=== PATIENT | male | born 1950 | race Caucasian/White ===

== ENCOUNTER 2016-08-07 15:43 | Emergency (ER) | payer OTHER ==
[~2016-08-07] VITALS: Ht 175.3 cm; Wt 61.8 kg
[~2016-08-07 15:43] MED LIST: AZITTAB PO; HYCUDL5 PO
[2016-08-07] MEDS ORDERED: CEFAZOLIN IV 2,000 MG in DEXTROSE 5% 50ML 50 ML IV STA (15:52)
[2016-08-07] MEDS ORDERED: HYDROmorphone INJ 1 MG/ML SYR IV STA (15:56)
[2016-08-07] MEDS ORDERED: HYDROmorphone INJ 1 MG/ML SYR ONE (15:57)
[2016-08-07] MEDS ORDERED: XYLOCAINE 1%/SOD BICARB 20 ML VIAL INFIL ONE (16:00)
[2016-08-07] MEDS ORDERED: DIPHTHERIA/TETANUS/PERTUSSIS 0.5 ML SYR/VIAL IM. ONE (16:00)
--- NOTE | 2016-08-07 16:02 | EMERGENCY ROOM VISIT NOTE ---
History Report prepared by Bessieibkhang: Kaleb Mooney Under the Supervision of: Dr. Art Garg M.D. First contact with patient: 15:48 Stated Complaint: CIRCULAR SAW/ LAC, TO THE BONE History of Present Illness The patient is a 66 year old male who presents to the Emergency Room via EMS with complaints of right leg laceration occurring a few minutes prior to arrival. He currently complains of right leg pain but otherwise denies any pain. He has worsening pain with movement. He was cutting wood with a circular saw when he hit something, the saw kicked back, and hit his leg. He denies any drug or alcohol use. His last tetanus shot was about 10 years ago. He denies any blood thinners or recent antibiotics. He does not have any medical problems. Source of History: patient Onset: a few minutes prior to arrival Position: leg (right) Quality: other (laceration) Modifying Factors (Worsening): movement Review of Systems See HPI for pertinent positives & negatives. A total of 6 systems reviewed and were otherwise negative. Past Medical & Surgical Medical Problems: (1) No Known Active Medical Problems Family History Diabetes mellitus Social History Marital Status: Occupation Status: unemployed Current/Historical Medications Scheduled Cephalexin Monohydrate (Keflex), 500 MG PO TID Multivitamins/Minerals (Mvi With Minerals), 1 TAB PO DAILY Allergies Coded Allergies: No Known Allergies (Verified , 08/07/16) Physical Exam Vital Signs Date Time Temp Pulse Resp B/P (MAP) Pulse Ox O2 Delivery O2 Flow Rate FiO2 08/07/16 17:29 75 18 96 08/07/16 17:21 127/65 08/07/16 16:25 131/81 08/07/16 16:13 79 14 97 08/07/16 16:04 36.8 97 20 131/81 98 Room Air 08/07/16 16:02 131/81 08/07/16 15:56 95 08/07/16 15:49 151/67 Physical Exam GENERAL: Patient is well appearing and in minimal distress. NECK: No stridor, no adenopathy, no meningismus, trachea is midline. LUNGS: No dyspnea. Clear to auscultation and equal bilaterally. No wheeze, no rhonchi. HEART: Regular rate and rhythm. No murmurs, rubs, gallops appreciated. EXTREMITIES: Normal motion all extremities, no cyanosis, no edema. 12 cm by 2 cm straight laceration over the right anterior thigh, mild muscle belly involvement, not grossly contaminated appearing, not actively bleeding. Distal pulses, sensation, movement intact. NEUROLOGIC: Alert and oriented, no acute motor or sensory deficits, no focal weakness, cranial nerves grossly intact. SKIN: No rash, no jaundice, no diaphoresis. Medical Decision & Procedures ER Provider Diagnostic Interpretation: X ray results are stated below per my interpretation and the radiologist's interpretation. RIGHT FEMUR 4 VIEWS CLINICAL HISTORY: Right thigh pain status post trauma COMPARISON: None. DISCUSSION: No fractures or dislocations are visualized. There is a soft tissue injury involving the mid anterior thigh. IMPRESSION: Soft tissue injury. No fractures identified. No radiopaque foreign bodies are evident Electronically signed by: Jonh Rand M.D. 08/07/2016 4:39 PM Dictated Date/Time: 08/07/2016 4:38 PM Medications Administered Medications (Trade) Dose Ordered Sig/Leanna Route Start Time Stop Time Status Last Admin Dose Admin Diphtheria/ Pertussis/Tetanus Vacc (Adacel Inj) 0.5 ml ONCE ONCE IM. 08/07/16 16:00 08/07/16 16:01 DC 08/07/16 16:20 0.5 ML Cefazolin Sodium 2000 mg/Dextrose 60 ml @ 100 mls/hr NOW STAT IV 08/07/16 15:52 08/07/16 16:27 DC 08/07/16 16:57 100 MLS/HR Hydromorphone HCl (Dilaudid Inj) 1 mg NOW STAT IV 08/07/16 15:56 08/07/16 15:57 DC 08/07/16 16:02 1 MG Oxycodone HCl (Roxicodone Immediate Rel 5MG Home Pack) 1 homepack UD ONCE PO 08/07/16 17:30 08/07/16 17:31 DC 08/07/16 17:30 1 HOMEPACK ED Course 1548: The patient was evaluated in room B10. A complete history and physical exam was performed. 1552: Cefazolin Sodium 2000 mg/Dextrose 60 ml @ 100 mls/hr IV 1556: Dilaudid Inj 1 mg IV 1600: Diphtheria/Pertussis/Tetanus Vacc 0.5 ml IM 1715: Cristian Elizalde PA-C, performed laceration repair. Refer to her procedure note for further details. 1720: Reevaluated the patient. Discussed results and discharge instructions: He verbalized understanding and agreement. The patient is ready for discharge. 1730: Oxycodone HCl 1 homepack PO Medical Decision Medication Reconciliation: I attest that I have personally reviewed the patient 's current medication list. Blood pressure screening: Patient was found to have an elevated blood pressure and was referred to their primary doctor for recheck and further treatment. 66 yr old male with right thigh laceration with no active bleeding nor is it significantly grossly contaminated. No other injuries and consistent with story of using circular saw. No n/v injury and patient without evidence of heavy hemorrhage. Pain controlled, given Adacel as last tetanus > 10yrs, and IV ancef given cause of injury and extent. Imaging without evidence of FB. Sutures/stapled by TERESA Elizalde with excellent closure. Wound care discussed with patient and family. Reviewed importance of monitoring for infection. Return for staple removal in 7-10 days. Impression Primary Impression: Laceration of right thigh Additional Impression: [id number] (DTP) vaccination Scribe Attestation The scribe's documentation has been prepared under my direction and personally reviewed by me in its entirety. I confirm that the note above accurately reflects all work, treatment, procedures, and medical decision making performed by me. Departure Information Dispostion Home / Self-Care Prescriptions Cephalexin Monohydrate (Keflex) 500 Mg Cap 500 MG PO TID for 7 Days, #21 CAP Prov: Art Garg M.D. 08/07/16 Referrals Pascual Wei M.D. (PCP) Forms HOME CARE DOCUMENTATION FORM, IMPORTANT VISIT INFORMATION Patient Instructions ED Laceration All, My [facility] Additional Instructions Return in 7-10 days for removal of brianda. You have received a narcotic pain medication. These medications may cause drowsiness and should not be used with other sedative medications. Do not drive , drink alcohol, perform dangerous activities, nor make important decisions after taking these medications. buttermaker continuous churn use or inappropriate use may lead to addiction. Problem Qualifiers Primary Impression: Laceration of right thigh Encounter type: initial encounter Qualified Codes: S71.111A - Laceration without foreign body, right thigh, initial encounter
[2016-08-07 16:04] VITALS: TEMP 36.8; Ht 175.3 cm; Wt 61.8 kg
[2016-08-07] MEDS ORDERED: MULT-513 PO (16:13)
--- NOTE | 2016-08-07 16:40 | DIAGNOSTIC IMAGING REPORT ---
RIGHT FEMUR 4 VIEWS CLINICAL HISTORY: Right thigh pain status post trauma COMPARISON: None. DISCUSSION: No fractures or dislocations are visualized. There is a soft tissue injury involving the mid anterior thigh. IMPRESSION: Soft tissue injury. No fractures identified. No radiopaque foreign bodies are evident Electronically signed by: Jonh Rand M.D. 08/07/2016 4:39 PM Dictated Date/Time: 08/07/2016 4:38 PM
--- NOTE | 2016-08-07 17:15 | EMERGENCY ROOM VISIT NOTE ---
ED Visit Note I was requested by Dr. Garg to repair a complex 12 cm right thigh laceration for this patient. Wound Repair: Complexity: Complex Verbal consent was obtained after the risks and benefits were explained, including but not limited to bleeding, scarring, infection, pain, and bone/joint /nerve damage. The skin was prepped with betadine and a sterile field set. The wound was anesthetized with 10 ml of 1% buffered lidocaine. With direct pressure the bleeding subsided. Copious irrigation was performed using the Morley irrigation and 500 mL of saline. The wound was explored for foreign bodies and none found. Debridement was not performed. The deep fascia was approximated with 5 interrupted 5-0 Vicryl sutures. The subcutaneous tissue was then approximated using a running 5-0 Vicryl suture. The wound edges were then approximated using 15 brianda Hemostasis and excellent approximation was achieved. Antibacterial ointment and a sterile dressing applied. Detailed wound care instructions and signs and symptoms of infection reviewed with the patient. No complications and the patient tolerated the procedure well.
[2016-08-07] MEDS ORDERED: CEPH500C PO (17:17)
[2016-08-07 17:21] VITALS: BP 127/65
[2016-08-07 17:29] VITALS: PULSE 75; O2SAT 96
[2016-08-07] MEDS ORDERED: OXYCODONE IR HOME PACK PO ONE (17:30)
== END 2016-08-07 17:35 | disposition home or self-care (01) ==
LOC: EDBD 15:43 → C.EDB 15:44
DX: S71.111A Laceration without foreign body, right thigh, initial encounter (principal); Z23 Encounter for immunization; W29.3XXA Contact with powered garden and outdoor hand tools and machinery, initial encounter; Z83.3 Family history of diabetes mellitus

== ENCOUNTER 2016-08-15 08:07 | Emergency (ER) | payer OTHER ==
[~2016-08-15 08:07] MED LIST changes: -AZITTAB PO; +CEPH500C PO; -HYCUDL5 PO; +MULT-513 PO
[2016-08-15 08:09] VITALS: TEMP 36.8
--- NOTE | 2016-08-15 08:36 | EMERGENCY ROOM VISIT NOTE ---
ED Visit Note First contact with patient: 08:12 CHIEF COMPLAINT: Suture removal This patient returns to the ED today for removal of sutures that were placed 8 days ago. There has been no swelling, redness, or purulent drainage from the wound. The patient feels like the laceration is healing well. He has been on antibiotics for prophylaxis against wound, but does note he has been applying antibiotic ointment for the past few days. REVIEW OF SYSTEMS: Head: No headache, injury or neck pain. Skin: No rash, new lesions, or masses. General: No fever or chills, fatigue, loss of appetite , or significant recent weight gain or loss. PMH: The patient is healthy; there is no significant medical or surgical history. SOCIAL HISTORY: Patient lives at home. PHYSICAL EXAM: Vital Signs: Reviewed Nurse's notes. There is a sutured wound on the right anterior thigh that appears to be healing well, with slight erythema and a small amount of punctate purulent drainage of which is superficial. Palpation does not reveal any fluid collections. There is no erythema, swelling, or tenderness. EMERGENCY DEPARTMENT COURSE: The sutures were removed without any difficulty and there was no separation of the wound edges. To help desk internship in strength and integrity I did apply for Steri-Strips in a perpendicular fashion after thoroughly cleansing the outside of the wound. He was educated upon worrisome symptoms which to return. He was discharged home in good condition. DIAGNOSIS: Healing laceration and suture removal Current/Historical Medications Scheduled Multivitamins/Minerals (Mvi With Minerals), 1 TAB PO DAILY Allergies Coded Allergies: No Known Allergies (Verified , 08/07/16) Vital Signs Date Time Temp Pulse Resp B/P (MAP) Pulse Ox O2 Delivery O2 Flow Rate FiO2 08/15/16 08:09 36.8 102 20 147/74 96 Room Air Departure Information Impression Primary Impression: Encounter for removal of brianda Dispostion Home / Self-Care Condition GOOD Referrals No Doctor, Assigned (PCP) Patient Instructions My [facility] Additional Instructions DISCHARGE INSTRUCTIONS AND TREATMENT: Wash any remaining crusts off of the wound today and resume your normal activities. You may leave the Steri-Strips in place for the next 1-2 days. At that point these will fall off. Please watch for signs of worsening infection to include redness, swelling, drainage or discharge from the wound site. If these are to develop please return immediately. If he developed fevers, chills, nausea or vomiting please also return. Thanks and have a good day.
[2016-08-15 08:45] VITALS: BP 123/67; PULSE 98; O2SAT 96
== END 2016-08-15 08:45 | disposition home or self-care (01) ==
LOC: C.EDB 08:09 → C.EDA 08:45
DX: S71.111D Laceration without foreign body, right thigh, subsequent encounter (principal); X58.XXXD Exposure to other specified factors, subsequent encounter

== ENCOUNTER 2016-09-13 09:35 | Emergency (ER) | payer OTHER ==
[~2016-09-13] VITALS: Ht 175.3 cm; Wt 60.6 kg
[~2016-09-13 09:35] MED LIST changes: -CEPH500C PO
[2016-09-13 09:37] VITALS: TEMP 36.6; Ht 175.3 cm; Wt 60.6 kg
--- NOTE | 2016-09-13 10:08 | EMERGENCY ROOM VISIT NOTE ---
History Report prepared by Eliceo: Hugo Blandon Under the Supervision of: Dr. Prince Brown M.D. First contact with patient: 09:49 Chief Complaint: WOUND RECHECK Stated Complaint: WOUND RECHECK Nursing Triage Summary: pt reports piece of string coming out of leg where he cut it. on left thigh cut with circular saw happened approx 1 month ago History of Present Illness The patient is a 66 year old male who presents to the Emergency Room for a right thigh wound re-check. He states that he had multiple brianda and sutures for a laceration of his right thigh which occurred about a month ago. He states that he accidently cut it with a circular saw. The patient states "there's a string coming out of it". He denies any redness or drainage to the area. He denies any recent fevers, chest pain, or SOB. The patient also complains of an "itching" sensation to his right thigh. Source of History: patient Onset: about a month ago Position: leg (right thigh) Quality: other (wound re-check) Associated Symptoms: No fevers, No chest pain, No SOB Note: The patient also complains of an "itching" sensation to his right thigh. Review of Systems See HPI for pertinent positives & negatives. A total of 6 systems reviewed and were otherwise negative. Past Medical & Surgical Medical Problems: (1) No Known Active Medical Problems Old medical records were reviewed. Nurse's notes were reviewed and I agree with. Family History Diabetes mellitus Social History Smoking Status: Current Every Day Smoker Marital Status: Occupation Status: unemployed Current/Historical Medications Scheduled Multivitamins/Minerals (Mvi With Minerals), 1 TAB PO DAILY Allergies Coded Allergies: No Known Allergies (Verified , 09/13/16) Physical Exam Vital Signs Date Time Temp Pulse Resp B/P (MAP) Pulse Ox O2 Delivery O2 Flow Rate FiO2 09/13/16 10:22 87 18 139/77 98 09/13/16 09:37 36.6 99 18 145/79 96 Room Air Physical Exam General: Well developed well nourished in no acute distress, breathing comfortably on room air. Normal speech HEENT: Normal cephalic atraumatic. Pupils are equal round and reactive to light. Extraocular movements are intact. Oropharynx is pink with moist mucous membranes. No swelling of the mouth lips or tongue. Neck: Supple with a midline trachea. No meningeal signs or stiffness, no JVD or bruits. No Stridor. Chest: Clear to auscultation bilaterally. No wheezes or rhonchi. No increased work of breathing. Heart: regular rate and rhythm. Abdomen: Soft nontender, nondistended without rebound guarding or rigidity. Extremities: Well healing laceration to the right high. No redness, warmth or drainage. Small suture exposed. Spine/Back. Non tender to palpation. No CVA tenderness Skin: Good turgor without rashes. Neurologic exam: Cranial nerves two through 12 are intact. Motor and sensation are intact and symmetrical throughout. Medical Decision & Procedures ED Course 0952: Past medical records reviewed. The patient was evaluated in room B6, and a complete history and physical examination were performed. 0955: I cut a small exposed suture in the patients right thigh. 1002: Upon reevaluation, the patient is resting comfortably. I discussed the results and treatment plan with him. He verbalized agreement of the treatment plan. The patient was discharged home. Medical Decision Differentials include, but are not limited to; infection, wound dehiscence, laceration, and foreign body. Medication reconciliation: I have personally reviewed the patient's medication list Hypertensive screening: The patient was found to have normal blood pressure and does not need follow-up This patient comes in as described above. On exam, he has a small suture loop hanging out of the wound. There is no wound dehiscence. The wound looks great otherwise and has no redness or warmth or pus or drainage. I reviewed the record and it shows that Vicryl resorbable sutures were used. It does seem to be bothering him and I did trim and cut the suture. They should resorb over time anyways. The patient is doing well and will be discharged home and was encouraged to return if any problems with the wound such as redness, pus, fever , drainage. Impression Primary Impression: Encounter for wound re-check Scribe Attestation The scribe's documentation has been prepared under my direction and personally reviewed by me in its entirety. I confirm that the note above accurately reflects all work, treatment, procedures, and medical decision making performed by me. Departure Information Dispostion Home / Self-Care Referrals No Doctor, Assigned (PCP) Forms HOME CARE DOCUMENTATION FORM, IMPORTANT VISIT INFORMATION, WORK / SCHOOL INSTRUCTIONS Patient Instructions My [facility] Additional Instructions Rest Return if: worsening of symptoms, any problems with wound, redness, pus, drainage
[2016-09-13 10:22] VITALS: BP 139/77; PULSE 87; O2SAT 98
== END 2016-09-13 10:23 | disposition home or self-care (01) ==
LOC: C.EDB 09:37
DX: Z09 Encounter for follow-up examination after completed treatment for conditions other than malignant neoplasm (principal); Z83.3 Family history of diabetes mellitus; F17.210 Nicotine dependence, cigarettes, uncomplicated

== ENCOUNTER 2023-07-23 09:48 | Inpatient (IN) ==
[2023-07-23] MEDS: SODIUM CHLORIDE 0.9% 1,000 ML IV SCH (10:26)
--- NOTE | 2023-07-23 10:28 | XRay Report ---
XR chest 1V portable CLINICAL HISTORY: Sepsis TECHNIQUE: Single frontal radiograph of the chest was obtained. Comparison: Comparison is made to chest radiograph 05/22/2010 FINDINGS: No lines and tubes are seen. The cardiomediastinal silhouette is normal. The lungs are clear. No evid ence of pleural effusion or pneumothorax. IMPRESSION: No acute abnormalities and in particular no radiographic evidence of pneumonia. ACT 112: Negative or not required by law. Electronically signed by: Chuy Gamboa M.D. 07/23/2023 10:27 AM
--- NOTE | 2023-07-23 10:36 | Emergency Department Note ---
Impression & Plan Altered mental status, Elevated troponin, Fever, Tachycardia ED Provider Note NAME: CELIA ARGUETA AGE: 73 SEX: M : 1950 ARRIVES VIA: Ambulance INFORMANT: Patient, ED PROVIDER(S): Otto Ashraf MD CHIEF COMPLAINT: Sleeping, tachycardic HPI: This is a 73-year-old male with history of possible dementia presenting for confusion, sleeping and tachycardia. Patient is with his sisters who he lives with. States that he was try to get dressed when he is found on the ground sitting up. Came back to find the patient laying down now. Was unable to get up on his own. They required assistance from a nephew. He otherwise was not acting himself so EMS was alerted. Upon arrival patient was noted tachycardic to the 140s. Reportedly as per EMS/nursing report he was hypoxic to 90% on room air. Otherwise he has not had any nausea, vomiting, diarrhea. No belly pain. No headache, falls or head injury. ROS: See above HPI for pertinent positives & negatives. A total of 10 systems reviewed and were otherwise negative. PHYSICAL EXAMINATION: General: resting comfortably in no acute distress Head: Normocephalic and atraumatic Eyes: Normal inspection, extraocular muscles intact Ear, nose, throat: Normal external exam, poor dentition Neck: Normal range of motion Respiratory: lungs clear to auscultation bilaterally Cardiovascular: Regular rate/rhythm, no murmur GI: soft, nontender, no guarding or rebound Extremities: nontender, moves all extremities Neuro: Awake, alert, moves all 70 spontaneously, symmetric face Skin: Warm, dry, and intact MEDICAL DECISION MAKING: This is a 73-year male presenting for confusion, sleeping + tachycardia. Patient is febrile, tachycardic. Will do septic workup at this time. Considered pneumonia, PE, ACS, bacteremia. Blood culture sent. No stiff neck at this time suggest meningitis clinically. -Blood reviewed showing no leukocytosis, slight hyponatremia. Troponin is elevated at 49.7. Procalcitonin is mildly elevated and 0.87 -Chest Xray independently interpreted by me showing no pneumothorax, focal opacity, or pleural effusions. -Head CT reveals no acute intracranial process -ECG independently interpreted by me with sinus tachycardia, rate of 116, normal axis, normal IL, normal QRS, normal QTc, no ST segment elevations consistent with STEMI criteria -Patient is febrile, tachycardic, confused, will admit for further workup. -Discussed with hospitalist for admission at this time. differential diagnosis: See above ER treatment provided: See below Diagnostics interpreted by me: ECG: See above Cardiac Monitoring: An order was placed for continuous cardiac monitoring. The monitor shows a rate of 104 sinus rhythm. Laboratory studies: As stated above and show below. Imaging studies: See below. 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 Beliefs That Will Affect Care: None Current Living Situation: Alone Other Information That Helps Us Care for You: No Feels Safe at Home: Yes Safety Concerns: Feels Safe At This Time Assistive Devices: None Allergies Allergies Allergy/AdvReac Type Severity Reaction Status Date / Time No Known Allergies Allergy Mild Verified 09/13/16 10:03 Home Meds Home Medications Medication Instructions Recorded Confirmed No Known Home Medications 07/23/23 07/23/23 Results & Data (ED) Vital Signs Vital Signs - 24 hr 07/23/23 09:48 07/23/23 10:17 07/23/23 10:30 Temperature 38.2 C H Temperature Source Oral Pulse Rate 120 H 120 H 112 H Pulse Rhythm Regular Respiratory Rate 21 21 Respiratory Effort / Characteristics Non-Labored Respiratory Depth Normal Respiratory Pattern Regular Blood Pressure 145/70 H Blood Pressure Mean 95 Pulse Oximetry 93 93 Oxygen Delivery Method Room Air Room Air Sepsis Recent Fever Within 48 Hours No Sepsis New/Unexplained Change in Mental Status Yes Sepsis Action Taken by Nursing Physician Notified Laboratory Data 07/24/23 07:46 07/24/23 07:46 Lab Results 07/23/23 07/23/23 07/23/23 Range/Units 10:07 10:27 10:28 WBC 5.94 (4.8-10.8) K/ul RBC 3.93 L (4.70-6.10) M/uL Hgb 12.9 L (14.0-18.0) g/dl Hct 37.5 L (42.0-52.0) % MCV 95.4 (80.0-100.0) fL MCH 32.8 (25.0-34.0) pg MCHC 34.4 (32.0-36.0) g/dL RDW Std Deviation 49.1 H (36.4-46.3) fL RDW Coeff of Tara 13.9 (11.5-14.5) % Plt Count 134 (130-400) K/uL MPV 11.4 (9.4-12.4) fL Immature Gran % (Auto) 0.5 % Neut % (Auto) 86.9 % Lymph % (Auto) 7.1 % [place] % (Auto) 2.0 % Eos % (Auto) 3.0 % Baso % (Auto) 0.5 % Neut # (Auto) 5.16 (1.40-6.50) K/uL Lymph # (Auto) 0.42 L (1.20-3.40) K/uL [place] # (Auto) 0.12 (0.11-0.59) K/uL Eos # (Auto) 0.18 (0.00-0.50) K/uL Baso # (Auto) 0.03 (0.00-0.20) K/uL Immature Gran # (Auto) 0.03 (0.01-0.20) K/uL Sodium 132 L (136-145) mmol/L Potassium 4.3 (3.5-5.1) mmol/L Chloride 100 (98-107) mmol/L Carbon Dioxide 24 (21-32) mmol/L Anion Gap 8 (3-11) BUN 31 H (6-23) mg/dl Creatinine 1.16 (0.6-1.4) mg/dl Est Cr Clr Drug Dosing Not Reportable Est GFR ( Amer) 72.0 ml/min Est GFR (Non-Af Amer) 62.1 ml/min BUN/Creatinine Ratio 26.7 H (10-20) Glucose 128 H (70-99(Fasting)) mg/dl Lactate 0.7 (0.4-2.0) mmol/L Calcium 8.8 (8.6-10.3) mg/dl Ionized Calcium Cancelled Magnesium 1.9 (1.7-2.4) mg/dl Total Bilirubin 0.7 (0.2-1.0) mg/dl Direct Bilirubin 0.2 (0-0.2) mg/dl AST 53 H (13-39) U/L ALT 20 (7-52) U/L Alkaline Phosphatase 73 (34-104) U/L Troponin I High Sens 49.7 H (0-20) pg/ml Total Protein 6.9 (6.0-8.3) gm/dl Albumin 3.9 (3.4-5.0) gm/dl Procalcitonin 0.87 H (0-0.5) ng/ml Urine Color Urine Appearance (Clear) Urine pH (4.5-7.5) Ur Specific [place] (1.000-1.030) Urine Protein (Negative) Urine Glucose (UA) (Negative) Urine Ketones (Negative) Urine Blood (Negative) Urine Nitrite (Negative) Urine Bilirubin (Negative) Urine Urobilinogen (Negative) Ur Leukocyte Esterase (Negative) Urine WBC (Auto) (0-5) /hpf Urine RBC (Auto) (0-2) /hpf U Hyaline Cast (Auto) (0-2) /lpf U Epithel Cells (Auto) (0-2) /hpf Urine Bacteria (Auto) (None Seen) Hyaline Casts (None Presnt) /lpf Granular Casts (None Prsent) /lpf Adenovirus (PCR) Not Detected (NotDetected) Anaplasma Smear See Comment Babesia Smear See Comment B. pertussis DNA (PCR) Not Detected (NotDetected) B.parapertussis DNA PCR Not Detected (NotDetected) Lyme Disease Screen Negative (Negative) C. pneumoniae DNA (PCR) Not Detected (NotDetected) Coronavirus OC43 (PCR) Not Detected (NotDetected) Coronavirus HKU1 (PCR) Not Detected (NotDetected) Coronavirus 229E (PCR) Not Detected (NotDetected) SARS-CoV-2 (PCR) Not Detected (NotDetected) Coronavirus NL63 (PCR) Not Detected (NotDetected) Human Metapneumovir PCR Not Detected (NotDetected) Influenza Type A (PCR) Not Detected (NotDetected) Influenza Type B (PCR) Not Detected (NotDetected) M. pneumoniae (PCR) Not Detected (NotDetected) Parainfluenza 1 (PCR) Not Detected (NotDetected) Parainfluenza 2 (PCR) Not Detected (NotDetected) Parainfluenza 3 (PCR) Not Detected (NotDetected) Parainfluenza 4 (PCR) Not Detected (NotDetected) RSV (PCR) Not Detected (NotDetected) Entero/Rhino (PCR) Not Detected (NotDetected) 07/23/23 07/23/23 07/23/23 Range/Units 10:59 12:14 12:59 WBC (4.8-10.8) K/ul RBC (4.70-6.10) M/uL Hgb (14.0-18.0) g/dl Hct (42.0-52.0) % MCV (80.0-100.0) fL MCH (25.0-34.0) pg MCHC (32.0-36.0) g/dL RDW Std Deviation (36.4-46.3) fL RDW Coeff of Tara (11.5-14.5) % Plt Count (130-400) K/uL MPV (9.4-12.4) fL Immature Gran % (Auto) % Neut % (Auto) % Lymph % (Auto) % [place] % (Auto) % Eos % (Auto) % Baso % (Auto) % Neut # (Auto) (1.40-6.50) K/uL Lymph # (Auto) (1.20-3.40) K/uL [place] # (Auto) (0.11-0.59) K/uL Eos # (Auto) (0.00-0.50) K/uL Baso # (Auto) (0.00-0.20) K/uL Immature Gran # (Auto) (0.01-0.20) K/uL Sodium (136-145) mmol/L Potassium (3.5-5.1) mmol/L Chloride (98-107) mmol/L Carbon Dioxide (21-32) mmol/L Anion Gap (3-11) BUN (6-23) mg/dl Creatinine (0.6-1.4) mg/dl Est Cr Clr Drug Dosing Est GFR ( Amer) ml/min Est GFR (Non-Af Amer) ml/min BUN/Creatinine Ratio (10-20) Glucose (70-99(Fasting)) mg/dl Lactate (0.4-2.0) mmol/L Calcium (8.6-10.3) mg/dl Ionized Calcium 1.11 L Magnesium (1.7-2.4) mg/dl Total Bilirubin (0.2-1.0) mg/dl Direct Bilirubin (0-0.2) mg/dl AST (13-39) U/L ALT (7-52) U/L Alkaline Phosphatase (34-104) U/L Troponin I High Sens 83.7 H* D (0-20) pg/ml Total Protein (6.0-8.3) gm/dl Albumin (3.4-5.0) gm/dl Procalcitonin (0-0.5) ng/ml Urine Color Dark Yellow Urine Appearance Cloudy A (Clear) Urine pH 5.5 (4.5-7.5) Ur Specific [place] 1.023 (1.000-1.030) Urine Protein 2+ H (Negative) Urine Glucose (UA) Negative (Negative) Urine Ketones 1+ H (Negative) Urine Blood 3+ H (Negative) Urine Nitrite Negative (Negative) Urine Bilirubin Negative (Negative) Urine Urobilinogen Negative (Negative) Ur Leukocyte Esterase Negative (Negative) Urine WBC (Auto) 0-5 (0-5) /hpf Urine RBC (Auto) 6-10 H (0-2) /hpf U Hyaline Cast (Auto) >20 H (0-2) /lpf U Epithel Cells (Auto) 3-5 H (0-2) /hpf Urine Bacteria (Auto) None Seen (None Seen) Hyaline Casts Present A (None Presnt) /lpf Granular Casts Present A (None Prsent) /lpf Adenovirus (PCR) (NotDetected) Anaplasma Smear Babesia Smear B. pertussis DNA (PCR) (NotDetected) B.parapertussis DNA PCR (NotDetected) Lyme Disease Screen (Negative) C. pneumoniae DNA (PCR) (NotDetected) Coronavirus OC43 (PCR) (NotDetected) Coronavirus HKU1 (PCR) (NotDetected) Coronavirus 229E (PCR) (NotDetected) SARS-CoV-2 (PCR) (NotDetected) Coronavirus NL63 (PCR) (NotDetected) Human Metapneumovir PCR (NotDetected) Influenza Type A (PCR) (NotDetected) Influenza Type B (PCR) (NotDetected) M. pneumoniae (PCR) (NotDetected) Parainfluenza 1 (PCR) (NotDetected) Parainfluenza 2 (PCR) (NotDetected) Parainfluenza 3 (PCR) (NotDetected) Parainfluenza 4 (PCR) (NotDetected) RSV (PCR) (NotDetected) Entero/Rhino (PCR) (NotDetected) Administered Medications Enoxaparin Sodium (Enoxaparin Inj 30 Mg/0.3 Ml Syr) 30 mg SQ QAM [facility] Stop: 08/23/23 08:59 Last Admin: 07/24/23 09:25 Dose: Not Given Documented By: GASTON Guaifenesin (Guaifenesin 600 Mg Tabcr) 600 mg PO Q12 [facility] Stop: 08/22/23 14:09 Last Admin: 07/24/23 07:35 Dose: 600 mg Documented By: Admin: 07/23/23 20:27 Dose: 600 mg Documented By: Admin: 07/23/23 14:49 Dose: Not Given Documented By: NATHALY Piperacillin Sod/Tazobactam (Sod 4.5 gm/ Dextrose) 100 mls @ 25 mls/hr IV Q8H [facility]; Protocol Stop: 07/25/23 18:59 Last Admin: 07/24/23 12:18 Dose: 25 mls/hr Documented By: Infusion: 07/24/23 07:34 Dose: Infused Documented By: Admin: 07/24/23 03:16 Dose: 25 mls/hr Documented By: Infusion: 07/23/23 23:44 Dose: Infused Documented By: Admin: 07/23/23 18:44 Dose: 25 mls/hr Documented By: NATHALY Vancomycin HCl 1,250 mg/ (Sodium Chloride) 275 mls @ 200 mls/hr IV Q24H [facility] Stop: 07/26/23 01:29 Last Infusion: 07/24/23 01:40 Dose: Infused Documented By: Admin: 07/24/23 00:08 Dose: 200 mls/hr Documented By: ELSY Metoprolol Tartrate (Metoprolol Tartrate 25 Mg Tab) 12.5 mg PO BID DELIA Stop: 08/23/23 10:44 Last Admin: 07/24/23 12:17 Dose: 12.5 mg Documented By: GASTON Discontinued Medications Enoxaparin Sodium (Enoxaparin Inj 40 Mg/0.4 Ml Syr) 40 mg SQ QAM [facility] Stop: 08/23/23 08:59 Last Admin: 07/24/23 07:37 Dose: Not Given Documented By: GASTON Sodium Chloride (Nss) 1,000 mls @ 999 mls/hr IV .Q1H1M [facility]IA Stop: 07/23/23 11:30 Last Infusion: 07/23/23 11:36 Dose: Infused Documented By: Admin: 07/23/23 10:26 Dose: 999 mls/hr Documented By: CATRACHITA Vancomycin HCl 1,250 mg/ (Sodium Chloride) 525 mls @ 200 mls/hr IV NOW ONE Stop: 07/23/23 15:34 Last Infusion: 07/23/23 17:57 Dose: Infused Documented By: Admin: 07/23/23 14:30 Dose: 200 mls/hr Documented By: NATHALY Piperacillin Sod/Tazobactam (Sod 4.5 gm/ Dextrose) 100 mls @ 200 mls/hr IV NOW ONE; Protocol Stop: 07/23/23 13:44 Last Infusion: 07/23/23 14:30 Dose: Infused Documented By: Admin: 07/23/23 13:45 Dose: 200 mls/hr Documented By: NAVJOT Ioversol (Optiray 320 125ml) 119 ml IV ONCE ONE Stop: 07/23/23 13:10 Last Admin: 07/23/23 13:10 Dose: 119 ml Documented By: SOBEIDAK Imaging Data Radiologist's Impression: Chest X-Ray 07/23/23 10:17 XR chest 1V portable CLINICAL HISTORY: Sepsis TECHNIQUE: Single frontal radiograph of the chest was obtained. Comparison: Comparison is made to chest radiograph 05/22/2010 FINDINGS: No lines and tubes are seen. The cardiomediastinal silhouette is normal. The lungs are clear. No evidence of pleural effusion or pneumothorax. IMPRESSION: No acute abnormalities and in particular no radiographic evidence of pneumonia. ACT 112: Negative or not required by law. Electronically signed by: Chuy Gamboa M.D. 07/23/2023 10:27 AM Discharge Plan Visit Data Chief Complaint: Illness Stated Complaint: ALOC, ILLNESS ED Provider: Otto Ashraf Discharge Problem: Altered mental status, Elevated troponin, Fever, Tachycardia Patient Disposition: Admitted As Inpatient Discharge Instructions Interventions: ED Discharge Assessment Last Done: 07/23/23 13:51
[2023-07-23 10:41] LABS: Alanine Aminotransferase 20 U/L (7-52); Albumin Level 3.9 gm/dl (3.4-5.0); Alkaline Phosphatase 73 U/L (34-104); Anion Gap 8 (3-11); Aspartate Aminotransferase 53 U/L (13-39); BUN Creatinine Ratio 26.7 (10-20); Bilirubin,Total 0.7 mg/dl (0.2-1.0); Blood Urea Nitrogen 31 mg/dl (6-23); Calcium 8.8 mg/dl (8.6-10.3); Carbon Dioxide 24 mmol/L (21-32); Chloride 100 mmol/L (98-107); Est GFR (Non-African American) 62.1 ml/min; Glucose 128 mg/dl (70-99(Fasting)); Magnesium 1.9 mg/dl (1.7-2.4); Potassium 4.3 mmol/L (3.5-5.1); Sodium 132 mmol/L (136-145); Total Protein 6.9 gm/dl (6.0-8.3)
[2023-07-23 10:42] LABS: Bilirubin Direct 0.2 mg/dl (0-0.2); Troponin I High Sensitivity 49.7 pg/ml (0-20)
[2023-07-23 10:49] LABS: Basophils # (auto) 0.03 K/uL (0.00-0.20); Basophils % (auto) 0.5 %; Eosinophils # (auto) 0.18 K/uL (0.00-0.50); Hematocrit (blood only) 37.5 % (42.0-52.0); Hemoglobin 12.9 g/dl (14.0-18.0); Immature Granulocytes # (auto) 0.03 K/uL (0.01-0.20); Immature Granulocytes % (auto) 0.5 %; Lymphocytes # (auto) 0.42 K/uL (1.20-3.40); Lymphocytes % (auto) 7.1 %; Mean Corpuscular Hemoglobin 32.8 pg (25.0-34.0); Mean Corpuscular Hgb Conc 34.4 g/dL (32.0-36.0); Mean Corpuscular Volume 95.4 fL (80.0-100.0); Mean Platelet Volume 11.4 fL (9.4-12.4); Monocytes # (auto) 0.12 K/uL (0.11-0.59); Neutrophils # (auto) 5.16 K/uL (1.40-6.50); Neutrophils % (auto) 86.9 %; Platelet Count 134 K/uL (130-400); RDW Coefficient of Variation 13.9 % (11.5-14.5); RDW Standard Deviation 49.1 fL (36.4-46.3); Red Blood Count 3.93 M/uL (4.70-6.10); White Blood Count 5.94 K/ul (4.8-10.8)
--- NOTE | 2023-07-23 10:54 | CT Scan Report ---
CT head/brain wo con CLINICAL HISTORY: Confusion, lethargy, Technique: Contiguous axial CT images of the head were acquired from the base of the skull to the aayush mary without intravenous contrast administration. Images were viewed in brain, subdural and [facility]. Automated dose lowering techniques and/or adjustment according to patient size were utilized for this exam. Comparison: None available at the time of this dictation. Findings: The ventricles, basal cisterns, and cerebral sulci are normal. There is no acute intracranial hemorrh age or evidence of acute territorial infarction. Neither mass effect, shift of the midline structures , nor abnormal extra-axial fluid collections are shown. Imaged portions of the paranasal sinuses and mastoid air cells are clear. The orbits appear normal. There are no acute fractures of the calvaria or scalp swelling. Impression: No acute intracranial hemorrhage, no evidence of acute territorial infarction or other acute intracra nial disease process. ACT 112: Negative or not required by law. Electronically signed by: Chuy Gamboa M.D. 07/23/2023 10:53 AM
[2023-07-23 11:31] LABS: Adenovirus PCR Not Detected (NotDetected); Bordetella parapertussis PCR Not Detected (NotDetected); Bordetella pertussis PCR Not Detected (NotDetected); Chlamydia pneumoniae PCR Not Detected (NotDetected); Coronavirus 229E PCR Not Detected (NotDetected); Coronavirus CoV-2 (COVID19)PCR Not Detected (NotDetected); Coronavirus HKU1 PCR Not Detected (NotDetected); Coronavirus NL63 PCR Not Detected (NotDetected); Coronavirus OC43PCR Not Detected (NotDetected); Human Metapneumovirus PCR Not Detected (NotDetected); Influenza A PCR Not Detected (NotDetected); Influenza B PCR Not Detected (NotDetected); Mycoplasma pneumoniae PCR Not Detected (NotDetected); Parainfluenza Virus 1 PCR Not Detected (NotDetected); Parainfluenza Virus 2 PCR Not Detected (NotDetected); Parainfluenza Virus 3 PCR Not Detected (NotDetected); Parainfluenza Virus 4 PCR Not Detected (NotDetected); Respiratory Syncytial VirusPCR Not Detected (NotDetected); Rhinovirus/Enterovirus PCR Not Detected (NotDetected)
--- NOTE | 2023-07-23 12:32 | History & Physical Report ---
Date of Service July 23, 2023 Assessment & Plan (1) Altered mental status: Plan: This is a 73 y/o male who does not routinely follow with medical providers who presented to the ED today via EMS after his sister found him lying on the floor this morning, unable to get up on his own. There is a question of undiagnosed dementia as patient refuses to seek medical care most of the time. His family reports that he is more confused and tired than usual today. On initial presentation to the ED, he was febrile and tachycardic. Resp panel was negative, urine testing pending. - Admit to PCU - Start broad spectrum antibiotics as clinical picture c/w infection of unclear source (Zosyn, vancomycin) - discussed with nurse to get a urine now, cath if required - Check CT chest to r/o PE in view of hypoxia on initial EMS evaluation - Check CT abd/pel due to unclear source of infection - Blood cultures, urine culture pending (2) Fever: Plan: See plan for #1 Labs for tickborne disease Stool PCR (3) Elevated troponin: Plan: Initial troponin in the ED was 49.7 - EKG reviewed and without ischemic changes at present - Trend troponin - Repeat EKG in the AM Plan Pt seen and reviewed with attending physician, Dr. Alcocer. Plan of care discussed and as outlined above. Code status: DNR/DNI per sisters DVT Prophylaxis: Lovenox Dispo: PCU Yady Sandoval PA-C History of Present Illness Chief Complaint: altered mental status Primary Care Provider: William Eisenberg This is a 73 y/o male who does not routinely follow with medical providers who presented to the ED today via EMS after his sister found him lying on the floor this morning, unable to get up on his own. History from the patient is limited due to his current confusion so most of history was obtained from his sisters who are at the bedside. His sister reports that pt has been sleeping more than usual the last several days. Yesterday, he slept most of the day and refused to eat anything. This morning, when she went to check on pt, he was having trouble getting dressed, which he does not usually have an issue with. He declined her help so she left and came back in a few minutes to check on him. When she came back, pt was lying on the floor and couldn't get up on this own. When she and her nephew attempted to get patient up, he was very stiff and seemed off- balance. Because of this change in mental status and generalized weakness, they called EMS. When EMS arrived, pt was tachycardic, febrile, and hypoxic so they started him on 6L O2. In the ED, pulseox has been in the low 90s on room air. Pt denies any pain at present. He knows that he is in the hospital but is unsure why. He has had a cough but no diarrhea, vomiting, shortness of breath, urinary incontinence. Pt does smoke "heavily" and chews tobacco. His sisters think that he has underlying dementia although he has never been formally diagnosed as he refuses to see a healthcare provider. They note that he has been more forgetful, such as forgetting to turn off the stove or forgetting why he went into a room, and gets intermittent episodes of confusion. His current mental status is worse than his usual per their report. Allergies Allergy/AdvReac Type Severity Reaction Status Date / Time No Known Allergies Allergy Mild Verified 09/13/16 10:03 Home Medications Medication Instructions Recorded Confirmed Type No Known Home Medications 07/23/23 07/23/23 History Past Med/Surg History Problem List (Updated 07/23/23 @ 19:49 by Samia Sandoval PA-C) Elevated troponin Altered mental status Fever Medical History (Updated 07/23/23 @ 19:49 by Samia Sandoval PA-C) Adhesive capsulitis of left shoulder Surgical History (Updated 07/23/23 @ 13:27 by Samia Sandoval PA-C) History of tonsillectomy History of thumb surgery Family History (Updated 07/23/23 @ 13:27 by Samia Sandoval PA-C) Other Heart disease Social History Smoking Status: Current every day smoker Hx Alcohol Use: No Hx Substance Use: No Preferred Language: Nepali Communication Ability: Effective [employer] Worker Required: No Beliefs That Will Affect Care: None Current Living Situation: Alone Other Information That Helps Us Care for You: No Feels Safe at Home: Yes Safety Concerns: Feels Safe At This Time Assistive Devices: None Review of Systems Review of Systems: Limited due to confusion - see HPI Physical Exam Physical Exam: For details of the physical exam, please see the physician note. Results & Data Results & Data Vital Signs (Past 12 Hours) Vital Signs Temp Pulse Pulse Resp BP BP Pulse Ox 07/23/23 11:00 104 H 18 136/62 95 07/23/23 10:30 112 H 07/23/23 10:17 120 H 21 93 07/23/23 09:48 38.2 C H 120 H 21 145/70 H 93 O2 Del Method 07/23/23 11:00 Room Air 07/23/23 10:30 07/23/23 10:17 Room Air 07/23/23 09:48 Room Air Laboratory Results Laboratory Results - last 24 hr 07/23/23 07/23/23 07/23/23 10:07 10:27 10:28 WBC 5.94 RBC 3.93 L Hgb 12.9 L Hct 37.5 L MCV 95.4 MCH 32.8 MCHC 34.4 RDW Std Deviation 49.1 H RDW Coeff of Tara 13.9 Plt Count 134 MPV 11.4 Immature Gran % (Auto) 0.5 Neut % (Auto) 86.9 Lymph % (Auto) 7.1 [place] % (Auto) 2.0 Eos % (Auto) 3.0 Baso % (Auto) 0.5 Neut # (Auto) 5.16 Lymph # (Auto) 0.42 L [place] # (Auto) 0.12 Eos # (Auto) 0.18 Baso # (Auto) 0.03 Immature Gran # (Auto) 0.03 Sodium 132 L Potassium 4.3 Chloride 100 Carbon Dioxide 24 Anion Gap 8 BUN 31 H Creatinine 1.16 Est Cr Clr Drug Dosing Not Reportable Est GFR ( Amer) 72.0 Est GFR (Non-Af Amer) 62.1 BUN/Creatinine Ratio 26.7 H Glucose 128 H Lactate 0.7 Calcium 8.8 Ionized Calcium Cancelled Magnesium 1.9 Total Bilirubin 0.7 Direct Bilirubin 0.2 AST 53 H ALT 20 Alkaline Phosphatase 73 Troponin I High Sens 49.7 H Total Protein 6.9 Albumin 3.9 Procalcitonin 0.87 H Adenovirus (PCR) Not Detected B. pertussis DNA (PCR) Not Detected B.parapertussis DNA PCR Not Detected C. pneumoniae DNA (PCR) Not Detected Coronavirus OC43 (PCR) Not Detected Coronavirus HKU1 (PCR) Not Detected Coronavirus 229E (PCR) Not Detected SARS-CoV-2 (PCR) Not Detected Coronavirus NL63 (PCR) Not Detected Human Metapneumovir PCR Not Detected Influenza Type A (PCR) Not Detected Influenza Type B (PCR) Not Detected M. pneumoniae (PCR) Not Detected Parainfluenza 1 (PCR) Not Detected Parainfluenza 2 (PCR) Not Detected Parainfluenza 3 (PCR) Not Detected Parainfluenza 4 (PCR) Not Detected RSV (PCR) Not Detected Entero/Rhino (PCR) Not Detected 07/23/23 10:59 WBC RBC Hgb Hct MCV MCH MCHC RDW Std Deviation RDW Coeff of Tara Plt Count MPV Immature Gran % (Auto) Neut % (Auto) Lymph % (Auto) [place] % (Auto) Eos % (Auto) Baso % (Auto) Neut # (Auto) Lymph # (Auto) [place] # (Auto) Eos # (Auto) Baso # (Auto) Immature Gran # (Auto) Sodium Potassium Chloride Carbon Dioxide Anion Gap BUN Creatinine Est Cr Clr Drug Dosing Est GFR ( Amer) Est GFR (Non-Af Amer) BUN/Creatinine Ratio Glucose Lactate Calcium Ionized Calcium 1.11 L Magnesium Total Bilirubin Direct Bilirubin AST ALT Alkaline Phosphatase Troponin I High Sens Total Protein Albumin Procalcitonin Adenovirus (PCR) B. pertussis DNA (PCR) B.parapertussis DNA PCR C. pneumoniae DNA (PCR) Coronavirus OC43 (PCR) Coronavirus HKU1 (PCR) Coronavirus 229E (PCR) SARS-CoV-2 (PCR) Coronavirus NL63 (PCR) Human Metapneumovir PCR Influenza Type A (PCR) Influenza Type B (PCR) M. pneumoniae (PCR) Parainfluenza 1 (PCR) Parainfluenza 2 (PCR) Parainfluenza 3 (PCR) Parainfluenza 4 (PCR) RSV (PCR) Entero/Rhino (PCR) Diagnostic Findings Chest X-Ray 07/23/23 10:17 XR chest 1V portable CLINICAL HISTORY: Sepsis TECHNIQUE: Single frontal radiograph of the chest was obtained. Comparison: Comparison is made to chest radiograph 05/22/2010 FINDINGS: No lines and tubes are seen. The cardiomediastinal silhouette is normal. The lungs are clear. No evidence of pleural effusion or pneumothorax. IMPRESSION: No acute abnormalities and in particular no radiographic evidence of pneumonia. ACT 112: Negative or not required by law. Electronically signed by: Chuy Gamboa M.D. 07/23/2023 10:[address] 07/23/23 10:17 CT head/brain wo con CLINICAL HISTORY: Confusion, lethargy, Technique: Contiguous axial CT images of the head were acquired from the base of the skull to the vertex without intravenous contrast administration. Images were viewed in brain, subdural and bone windows. Automated dose lowering techniques and/or adjustment according to patient size were utilized for this exam. Comparison: None available at the time of this dictation. Findings: The ventricles, basal cisterns, and cerebral sulci are normal. There is no acute intracranial hemorrhage or evidence of acute territorial infarction. Neither mass effect, shift of the midline structures, nor abnormal extra-axial fluid collections are shown. Imaged portions of the paranasal sinuses and mastoid air cells are clear. The orbits appear normal. There are no acute fractures of the calvaria or scalp swelling. Impression: No acute intracranial hemorrhage, no evidence of acute territorial infarction or other acute intracranial disease process. ACT 112: Negative or not required by law. Electronically signed by: Chuy Gamboa M.D. 07/23/2023 10:53 AM Medications Administered Discontinued Medications Sodium Chloride (Nss) 1,000 mls @ 999 mls/hr IV .Q1H1M DELIA Stop: 07/23/23 11:30 Last Infusion: 07/23/23 11:36 Dose: Infused Documented By: Admin: 07/23/23 10:26 Dose: 999 mls/hr Documented By: CATRACHITA Supervising Physician Co-Signing Physician Notes Pt seen and examined by tn, care coordinated w/ MELANI Sandoval, pls see her note above for further detail. Pt is a 73 y/o M who does not routinely follow with medical providers who presents via EMS after his sister found him lying on the floor this morning, unable to get up on his own. Pt's sister reports that pt has been sleeping more than usual the last several days. In the ED found febrile with temp. 38.2C, tachycardic into 120s, elev. troponin. CXR negative. procal mildly elevated, WBC wnl. UA pending. CT head negative. Pt is currently laying in bed in [facility]. He knows that he is in the hospital and recognizes his sisters at the bedside. he is able to answer simple questions. CV: tachycardic. Lung sounds diminished, no wheezing. Abdomen soft, nontender, +bowel sounds. No LE edema. Skin is warm and dry. Pt is moving extremities. Concern for sepsis with AMS, fever, tachycardia, elev. procal even though WBC wnl - may not be sign. elevated in elderly, and infectious work-up pending. blood cultx pending. UA not obtained yet. Will also rule PE/ DVT. Will start broad spectrum abx. MD Carlyn (1) Altered mental status Altered mental status type: unspecified Qualified Code(s): R41.82 - Altered mental status, unspecified (2) Fever Fever type: unspecified Qualified Code(s): R50.9 - Fever, unspecified
[2023-07-23] MEDS ORDERED: VANCOMYCIN CONSULT ACTIVE PRN (12:57)
[2023-07-23] MEDS ORDERED: Patient's HEIGHT &/or WEIGHT Needed STA (13:05)
[2023-07-23] MEDS: OPTIRAY 320 125ml IV ONE (13:10)
[2023-07-23 13:24] LABS: Appearance Urine Cloudy (Clear); Bacteria Urine Automated None Seen (None Seen); Bilirubin Urine Negative (Negative); Blood Urine 3+ (Negative); Cast Urine Automated >20 /lpf (0-2); Color Urine Dark Yellow; Glucose Urine UA Negative (Negative); Granular Casts Urine Present /lpf (None Prsent); Hyaline Casts Urine Present /lpf (None Presnt); Ketones Urine 1+ (Negative); Leukocyte Esterase Urine Negative (Negative); Nitrite Urine Negative (Negative); Protein Urine 2+ (Negative); Specific Gravity Urine 1.023 (1.000-1.030); Urobilinogen Urine Negative (Negative); WBC Urine Automated 0-5 /hpf (0-5); pH Urine 5.5 (4.5-7.5)
[2023-07-23] MEDS: PIPER/TAZO 4.5g in D5W MINI-B 100 ML IV ONE (13:45)
--- NOTE | 2023-07-23 13:49 | CT Scan Report ---
CT angio chest PE protocol CLINICAL HISTORY: PE TECHNIQUE: Multidetector row helical CT of the chest was performed with angiographic protocol. Blackmon l and sagittal reformations were obtained. Coronal and sagittal MIPS were obtained from the axial fela a set and were submitted for review. Automated dose lowering techniques and/or adjustment according to patient size were utilized for this exam. CT DOSE: 814.34 mGy.cm Comparison: Comparison is made to CT chest 05/22/2010 FINDINGS: Lungs and pleura: Bronchiectasis and tree-in-bud nodularity is seen most prominently in the right mid dle lobe and anterior left lung. Tree-in-bud nodularity is in the right upper lobe as well. Heart and pericardium: Heart size is normal. No pericardial effusion. Vessels: No evidence of pulmonary embolism. Mild atherosclerotic disease is seen. Mediastinum and eloisa: No lymphadenopathy. Thickening of the esophageal wall is noted. Chest wall and lower neck: Unremarkable. Abdomen: For findings below the diaphragm, please refer to CT of the abdomen dated the same. Bones: Degenerative changes in the thoracic spine. IMPRESSION: No evidence of pulmonary embolus. Bronchiectasis and infectious/inflammatory process noted, likely ch ronic such as from atypical mycobacterial infection. Findings are increased from 2011 and mild superi mposed pneumonia cannot be excluded. ACT 112: Negative or not required by law. Electronically signed by: Chuy Gamboa M.D. 07/23/2023 1:47 PM
--- NOTE | 2023-07-23 13:56 | CT Scan Report ---
CT abd pelvis IV con only CLINICAL HISTORY: fever, tachycardia, AMS TECHNIQUE: Helical axial images of the abdomen and pelvis were obtained and displayed. Automated dose lowering techniques and/or adjustment according to patient size were utilized for this exam. This e xam was performed with intravenous contrast. COMPARISON: None available at the time of this dictation. FINDINGS: Lower chest: For findings above the diaphragm, please see CT chest performed same day. Liver: Unremarkable. No focal lesions are seen. Gallbladder and biliary tree: No calcified gallstones. Normal caliber wall. No intra- or extrahepatic biliary ductal dilation. Pancreas: Unremarkable, no focal lesions. Spleen: Unremarkable. Adrenals: Unremarkable. Kidneys and ureters: Nonobstructive nephrolithiasis is seen. Bladder: Diffuse homogeneous wall thickening is seen. Reproductive organs: Prostatic calcifications are seen which may represent prior hemorrhage or granul omatous disease. Bowel: The appendix is normal. Lymph nodes Retroperitoneal: Unremarkable. Pelvic: Unremarkable. Mesenteric: Unremarkable. Peritoneum: Normal. Vessels: Atherosclerotic calcifications are seen. Abdominal wall: Unremarkable. Bones: Degenerative changes in the visualized spine. IMPRESSION: No acute abnormalities. ACT 112: Negative or not required by law. Electronically signed by: Chuy Gamboa M.D. 07/23/2023 1:54 PM
[2023-07-23] MEDS ORDERED: ACETAMINOPHEN 325 MG TAB PO PRN (14:18)
[2023-07-23] MEDS: VANCOMYCIN HCL 1,250 MG in SODIUM CHLORIDE 0.9% 500 ML IV ONE (14:30)
[2023-07-23] MEDS: guaiFENesin 600 MG TABCR PO SCH (14:49)
--- NOTE | 2023-07-23 16:58 | Ultrasound Report ---
US venous doppler LE BI CLINICAL HISTORY: r/o DVT TECHNIQUE: Bilateral lower extremity real-time compression venous ultrasound with Color Doppler imagi ng. Utilizing real-time ultrasonic imaging multiple real time high-resolution ultrasonic images with compression and noncompression maneuvers of the deep venous system in addition to color doppler imagi ng were performed from the common femoral vein through the proximal calf veins. COMPARISON: None available at the time of this dictation. FINDINGS/IMPRESSION: Currently there is normal compressibility of the deep venous system from the common femoral vein thro ugh the proximal calf veins. No superficial venous thrombosis is identified. ACT 112: Negative or not required by law. Electronically signed by: Chuy Gamboa M.D. 07/23/2023 4:56 PM
[2023-07-23] MEDS: PIPERACILLIN/TAZOBACTAM 4.5 GM in DEXTROSE 5% MINI-B 100 ML IV SCH (18:44)
[2023-07-24] MEDS: VANCOMYCIN HCL 1,250 MG in SODIUM CHLORIDE 0.9% 250 ML IV SCH (00:08)
--- NOTE | 2023-07-24 06:59 | Electrocardiogram Report ---
Test Reason : Blood Pressure : / mmHG Vent. Rate : 103 BPM Atrial Rate : 103 BPM P-R Int : 120 ms QRS Dur : 082 ms QT Int : 366 ms P-R-T Axes : 075 -48 054 degrees QTc Int : 479 ms Sinus tachycardia with PACs Left anterior fascicular block Abnormal ECG When compared with ECG of 23-JUL-2023 09:55, (unconfirmed) Left anterior fascicular block is now Present PACs are now present Confirmed by Paulie Escobar ([id number]) on 07/24/2023 6:59:22 AM Referred By: Prasanth Alcocer Confirmed By:Suhail Escobar
--- NOTE | 2023-07-24 07:03 | Electrocardiogram Report ---
Test Reason : Blood Pressure : / mmHG Vent. Rate : 116 BPM Atrial Rate : 116 BPM P-R Int : 116 ms QRS Dur : 080 ms QT Int : 332 ms P-R-T Axes : 074 -08 063 degrees QTc Int : 461 ms Sinus tachycardia Otherwise normal ECG When compared with ECG of 22-MAY-2010 18:28, No significant change was found Confirmed by Paulie Escobar ([id number]) on 07/24/2023 7:02:54 AM Referred By: Prasanth Alcocer Confirmed By:Suhail Escobar
[2023-07-24] MEDS: ENOXAPARIN INJ 40 MG/0.4 ML SYR SQ SCH (07:37)
--- NOTE | 2023-07-24 07:41 | Hospitalist Progress Note ---
Date of Service July 24, 2023 Assessment & Plan (1) Altered mental status: Plan: This is a 73 y/o male who does not routinely follow with medical providers who presents with fever, tachycardia, AMS - after his sister found him lying on the floor unable to get up on his own. There is a question of undiagnosed dementia as patient refuses to seek medical care most of the time. His family reports that he is more confused and tired than usual. On initial presentation to the ED, he was febrile and tachycardic. Resp panel was negative, urine testing pending. Possible sepsis, poss. pna - Admitted to PCU - Resp panel was negative - CXR negative - WBC wnl - Procal 0.87 - CT PE - No evidence of pulmonary embolus. Bronchiectasis and infectious/inflammatory process noted, likely chronic such as from atypical mycobacterial infection. Findings are increased from 2011 and mild superimposed pneumonia cannot be excluded. - Doppler LE negative for DVT - CT abd/pelvis - No acute abnormalities. - Ucultx pending - Blood cultures - pending - Labs for tickborne disease - pending - Stool PCR pending - Started broad spectrum antibiotics as clinical picture c/w infection of unclear source (Zosyn, vancomycin) - guafenesin, flutter valve, IS - cont. to closely monitor and follow cultx (2) Fever: Plan: See plan for #1 Labs for tickborne disease Stool PCR Scrotal edema - will obtain US - nontender (3) Elevated troponin: Plan: Initial troponin in the ED was 49.7 - EKG reviewed and without ischemic changes at present - repeat Troponin trending up - will obtain echo and will discuss w/ cardiology Plan Code status: DNR/DNI per sisters DVT Prophylaxis: Lovenox Dispo: PCU Admission and Anticipated Discharge Date Admission Date: July 23, 2023 Subjective Pt seen in follow up of fever, tachycardia, AMS, elev. trop. Currently laying in bed in NAD Denies any chest pain, shortness of breath, abd. pain - denies any fever, chills, discomfort RN at the bedside and discussed with Review of Systems Review of Systems: All systems reviewed & are unremarkable except as noted in Subjective Physical Exam Constitutional: WD/WN, vitals as above Eyes: PERRL, conjunctivae normal, anicteric sclerae ENMT: external ear and nose normal, oropharynx normal (+ poor dentition) Neck: normal visual inspection Respiratory: normal respiratory effort, lungs clear to auscultation Cardiovascular: Rate/Rhythm: + tachycardic Chest (Breasts): Chest: normal inspection of chest Gastrointestinal (Abdomen): Inspection/Auscultation: abdomen normal to inspection (soft) and normal bowel sounds Musculoskeletal: Extremities: extremities normal to inspection Skin: no rashes, warm and dry Neurologic: PERRL, EOMI, accommodation nl, no face palsy, no dysarthria Genitourinary: + edema (scrotal) Results & Data Results & Data Vital Signs (Past 12 Hours) Vital Signs Temp Pulse Pulse Resp BP Pulse Ox O2 Del Method 07/24/23 03:22 36.6 C 109 H 18 123/72 93 Room Air 07/24/23 00:00 100 H 07/23/23 22:58 36.9 C 110 H 25 H 126/65 91 Room Air 07/23/23 19:51 37.3 C 112 H 26 H 165/80 H 93 Room Air 07/23/23 19:45 Room Air Laboratory Results 07/24/23 07/23/23 07/23/23 Range/Units 00:37 18:25 12:59 WBC (4.8-10.8) K/ul RBC (4.70-6.10) M/uL Hgb (14.0-18.0) g/dl Hct (42.0-52.0) % MCV (80.0-100.0) fL MCH (25.0-34.0) pg MCHC (32.0-36.0) g/dL RDW Std Deviation (36.4-46.3) fL RDW Coeff of Tara (11.5-14.5) % Plt Count (130-400) K/uL MPV (9.4-12.4) fL Immature Gran % (Auto) % Neut % (Auto) % Lymph % (Auto) % Otero % (Auto) % Eos % (Auto) % Baso % (Auto) % Neut # (Auto) (1.40-6.50) K/uL Lymph # (Auto) (1.20-3.40) K/uL Otero # (Auto) (0.11-0.59) K/uL Eos # (Auto) (0.00-0.50) K/uL Baso # (Auto) (0.00-0.20) K/uL Immature Gran # (Auto) (0.01-0.20) K/uL Sodium (136-145) mmol/L Potassium (3.5-5.1) mmol/L Chloride (98-107) mmol/L Carbon Dioxide (21-32) mmol/L Anion Gap (3-11) BUN (6-23) mg/dl Creatinine (0.6-1.4) mg/dl Est Cr Clr Drug Dosing Est GFR ( Amer) ml/min Est GFR (Non-Af Amer) ml/min BUN/Creatinine Ratio (10-20) Glucose (70-99(Fasting)) mg/dl Lactate (0.4-2.0) mmol/L Calcium (8.6-10.3) mg/dl Ionized Calcium Magnesium (1.7-2.4) mg/dl Total Bilirubin (0.2-1.0) mg/dl Direct Bilirubin (0-0.2) mg/dl AST (13-39) U/L ALT (7-52) U/L Alkaline Phosphatase (34-104) U/L Troponin I High Sens 142.6 H* 140.8 H* D (0-20) pg/ml Total Protein (6.0-8.3) gm/dl Albumin (3.4-5.0) gm/dl Procalcitonin (0-0.5) ng/ml Urine Color Dark Yellow Urine Appearance Cloudy A (Clear) Urine pH 5.5 (4.5-7.5) Ur Specific Fountain 1.023 (1.000-1.030) Urine Protein 2+ H (Negative) Urine Glucose (UA) Negative (Negative) Urine Ketones 1+ H (Negative) Urine Blood 3+ H (Negative) Urine Nitrite Negative (Negative) Urine Bilirubin Negative (Negative) Urine Urobilinogen Negative (Negative) Ur Leukocyte Esterase Negative (Negative) Urine WBC (Auto) 0-5 (0-5) /hpf Urine RBC (Auto) 6-10 H (0-2) /hpf U Hyaline Cast (Auto) >20 H (0-2) /lpf U Epithel Cells (Auto) 3-5 H (0-2) /hpf Urine Bacteria (Auto) None Seen (None Seen) Hyaline Casts Present A (None Presnt) /lpf Granular Casts Present A (None Prsent) /lpf Adenovirus (PCR) (NotDetected) Anaplasma Smear Babesia Smear Babesia microti DNA PCR B. pertussis DNA (PCR) (NotDetected) B.parapertussis DNA PCR (NotDetected) Lyme Disease Screen (Negative) C. pneumoniae DNA (PCR) (NotDetected) Coronavirus OC43 (PCR) (NotDetected) Coronavirus HKU1 (PCR) (NotDetected) Coronavirus 229E (PCR) (NotDetected) SARS-CoV-2 (PCR) (NotDetected) Coronavirus NL63 (PCR) (NotDetected) Human Metapneumovir PCR (NotDetected) Influenza Type A (PCR) (NotDetected) Influenza Type B (PCR) (NotDetected) M. pneumoniae (PCR) (NotDetected) Parainfluenza 1 (PCR) (NotDetected) Parainfluenza 2 (PCR) (NotDetected) Parainfluenza 3 (PCR) (NotDetected) Parainfluenza 4 (PCR) (NotDetected) RSV (PCR) (NotDetected) Entero/Rhino (PCR) (NotDetected) 07/23/23 07/23/23 07/23/23 Range/Units 12:14 10:59 10:28 WBC (4.8-10.8) K/ul RBC (4.70-6.10) M/uL Hgb (14.0-18.0) g/dl Hct (42.0-52.0) % MCV (80.0-100.0) fL MCH (25.0-34.0) pg MCHC (32.0-36.0) g/dL RDW Std Deviation (36.4-46.3) fL RDW Coeff of Tara (11.5-14.5) % Plt Count (130-400) K/uL MPV (9.4-12.4) fL Immature Gran % (Auto) % Neut % (Auto) % Lymph % (Auto) % Otero % (Auto) % Eos % (Auto) % Baso % (Auto) % Neut # (Auto) (1.40-6.50) K/uL Lymph # (Auto) (1.20-3.40) K/uL Otero # (Auto) (0.11-0.59) K/uL Eos # (Auto) (0.00-0.50) K/uL Baso # (Auto) (0.00-0.20) K/uL Immature Gran # (Auto) (0.01-0.20) K/uL Sodium (136-145) mmol/L Potassium (3.5-5.1) mmol/L Chloride (98-107) mmol/L Carbon Dioxide (21-32) mmol/L Anion Gap (3-11) BUN (6-23) mg/dl Creatinine (0.6-1.4) mg/dl Est Cr Clr Drug Dosing Est GFR ( Amer) ml/min Est GFR (Non-Af Amer) ml/min BUN/Creatinine Ratio (10-20) Glucose (70-99(Fasting)) mg/dl Lactate (0.4-2.0) mmol/L Calcium (8.6-10.3) mg/dl Ionized Calcium 1.11 L Magnesium (1.7-2.4) mg/dl Total Bilirubin (0.2-1.0) mg/dl Direct Bilirubin (0-0.2) mg/dl AST (13-39) U/L ALT (7-52) U/L Alkaline Phosphatase (34-104) U/L Troponin I High Sens 83.7 H* D (0-20) pg/ml Total Protein (6.0-8.3) gm/dl Albumin (3.4-5.0) gm/dl Procalcitonin (0-0.5) ng/ml Urine Color Urine Appearance (Clear) Urine pH (4.5-7.5) Ur Specific Fountain (1.000-1.030) Urine Protein (Negative) Urine Glucose (UA) (Negative) Urine Ketones (Negative) Urine Blood (Negative) Urine Nitrite (Negative) Urine Bilirubin (Negative) Urine Urobilinogen (Negative) Ur Leukocyte Esterase (Negative) Urine WBC (Auto) (0-5) /hpf Urine RBC (Auto) (0-2) /hpf U Hyaline Cast (Auto) (0-2) /lpf U Epithel Cells (Auto) (0-2) /hpf Urine Bacteria (Auto) (None Seen) Hyaline Casts (None Presnt) /lpf Granular Casts (None Prsent) /lpf Adenovirus (PCR) Not Detected (NotDetected) Anaplasma Smear Babesia Smear Babesia microti DNA PCR B. pertussis DNA (PCR) Not Detected (NotDetected) B.parapertussis DNA PCR Not Detected (NotDetected) Lyme Disease Screen (Negative) C. pneumoniae DNA (PCR) Not Detected (NotDetected) Coronavirus OC43 (PCR) Not Detected (NotDetected) Coronavirus HKU1 (PCR) Not Detected (NotDetected) Coronavirus 229E (PCR) Not Detected (NotDetected) SARS-CoV-2 (PCR) Not Detected (NotDetected) Coronavirus NL63 (PCR) Not Detected (NotDetected) Human Metapneumovir PCR Not Detected (NotDetected) Influenza Type A (PCR) Not Detected (NotDetected) Influenza Type B (PCR) Not Detected (NotDetected) M. pneumoniae (PCR) Not Detected (NotDetected) Parainfluenza 1 (PCR) Not Detected (NotDetected) Parainfluenza 2 (PCR) Not Detected (NotDetected) Parainfluenza 3 (PCR) Not Detected (NotDetected) Parainfluenza 4 (PCR) Not Detected (NotDetected) RSV (PCR) Not Detected (NotDetected) Entero/Rhino (PCR) Not Detected (NotDetected) 07/23/23 07/23/23 Range/Units 10:27 10:07 WBC 5.94 (4.8-10.8) K/ul RBC 3.93 L (4.70-6.10) M/uL Hgb 12.9 L (14.0-18.0) g/dl Hct 37.5 L (42.0-52.0) % MCV 95.4 (80.0-100.0) fL MCH 32.8 (25.0-34.0) pg MCHC 34.4 (32.0-36.0) g/dL RDW Std Deviation 49.1 H (36.4-46.3) fL RDW Coeff of Tara 13.9 (11.5-14.5) % Plt Count 134 (130-400) K/uL MPV 11.4 (9.4-12.4) fL Immature Gran % (Auto) 0.5 % Neut % (Auto) 86.9 % Lymph % (Auto) 7.1 % Otero % (Auto) 2.0 % Eos % (Auto) 3.0 % Baso % (Auto) 0.5 % Neut # (Auto) 5.16 (1.40-6.50) K/uL Lymph # (Auto) 0.42 L (1.20-3.40) K/uL Otero # (Auto) 0.12 (0.11-0.59) K/uL Eos # (Auto) 0.18 (0.00-0.50) K/uL Baso # (Auto) 0.03 (0.00-0.20) K/uL Immature Gran # (Auto) 0.03 (0.01-0.20) K/uL Sodium 132 L (136-145) mmol/L Potassium 4.3 (3.5-5.1) mmol/L Chloride 100 (98-107) mmol/L Carbon Dioxide 24 (21-32) mmol/L Anion Gap 8 (3-11) BUN 31 H (6-23) mg/dl Creatinine 1.16 (0.6-1.4) mg/dl Est Cr Clr Drug Dosing Not Reportable Est GFR ( Amer) 72.0 ml/min Est GFR (Non-Af Amer) 62.1 ml/min BUN/Creatinine Ratio 26.7 H (10-20) Glucose 128 H (70-99(Fasting)) mg/dl Lactate 0.7 (0.4-2.0) mmol/L Calcium 8.8 (8.6-10.3) mg/dl Ionized Calcium Cancelled Magnesium 1.9 (1.7-2.4) mg/dl Total Bilirubin 0.7 (0.2-1.0) mg/dl Direct Bilirubin 0.2 (0-0.2) mg/dl AST 53 H (13-39) U/L ALT 20 (7-52) U/L Alkaline Phosphatase 73 (34-104) U/L Troponin I High Sens 49.7 H (0-20) pg/ml Total Protein 6.9 (6.0-8.3) gm/dl Albumin 3.9 (3.4-5.0) gm/dl Procalcitonin 0.87 H (0-0.5) ng/ml Urine Color Urine Appearance (Clear) Urine pH (4.5-7.5) Ur Specific Fountain (1.000-1.030) Urine Protein (Negative) Urine Glucose (UA) (Negative) Urine Ketones (Negative) Urine Blood (Negative) Urine Nitrite (Negative) Urine Bilirubin (Negative) Urine Urobilinogen (Negative) Ur Leukocyte Esterase (Negative) Urine WBC (Auto) (0-5) /hpf Urine RBC (Auto) (0-2) /hpf U Hyaline Cast (Auto) (0-2) /lpf U Epithel Cells (Auto) (0-2) /hpf Urine Bacteria (Auto) (None Seen) Hyaline Casts (None Presnt) /lpf Granular Casts (None Prsent) /lpf Adenovirus (PCR) (NotDetected) Anaplasma Smear See Comment Babesia Smear See Comment Babesia microti DNA PCR Pending B. pertussis DNA (PCR) (NotDetected) B.parapertussis DNA PCR (NotDetected) Lyme Disease Screen Negative (Negative) C. pneumoniae DNA (PCR) (NotDetected) Coronavirus OC43 (PCR) (NotDetected) Coronavirus HKU1 (PCR) (NotDetected) Coronavirus 229E (PCR) (NotDetected) SARS-CoV-2 (PCR) (NotDetected) Coronavirus NL63 (PCR) (NotDetected) Human Metapneumovir PCR (NotDetected) Influenza Type A (PCR) (NotDetected) Influenza Type B (PCR) (NotDetected) M. pneumoniae (PCR) (NotDetected) Parainfluenza 1 (PCR) (NotDetected) Parainfluenza 2 (PCR) (NotDetected) Parainfluenza 3 (PCR) (NotDetected) Parainfluenza 4 (PCR) (NotDetected) RSV (PCR) (NotDetected) Entero/Rhino (PCR) (NotDetected) Medications Administered Current Inpatient Medications Acetaminophen (Acetaminophen 325 Mg Tab) 650 mg PO Q4H PRN PRN Reason: Pain or Fever Stop: 08/22/23 14:17 Enoxaparin Sodium (Enoxaparin Inj 40 Mg/0.4 Ml Syr) 40 mg SQ QAM [facility] Stop: 08/23/23 08:59 Last Admin: 07/24/23 07:37 Dose: Not Given Guaifenesin (Guaifenesin 600 Mg Tabcr) 600 mg PO Q12 [facility] Stop: 08/22/23 14:09 Last Admin: 07/24/23 07:35 Dose: 600 mg Piperacillin Sod/Tazobactam (Sod 4.5 gm/ Dextrose) 100 mls @ 25 mls/hr IV Q8H [facility]; Protocol Stop: 07/25/23 18:59 Last Infusion: 07/24/23 07:34 Dose: Infused Vancomycin HCl 1,250 mg/ (Sodium Chloride) 275 mls @ 200 mls/hr IV Q24H [facility] Stop: 07/26/23 01:29 Last Infusion: 07/24/23 01:40 Dose: Infused Miscellaneous Information (Vancomycin Consult Active) 1 each N/A UD PRN PRN Reason: Consult Stop: 08/22/23 12:56 (1) Altered mental status Altered mental status type: unspecified Qualified Code(s): R41.82 - Altered mental status, unspecified (2) Fever Fever type: unspecified Qualified Code(s): R50.9 - Fever, unspecified
[2023-07-24 08:17] LABS: Albumin Globulin Ratio 1.1 (0.9-2); Albumin Level 3.3 gm/dl (3.4-5.0); BUN Creatinine Ratio 23.6 (10-20); Bilirubin,Total 0.6 mg/dl (0.2-1.0); Calcium 8.2 mg/dl (8.6-10.3); Creatinine Clr Calc Pharmacy 63.7 ml/min; Est GFR (African American) 98.3 ml/min; Est GFR (Non-African American) 84.8 ml/min; Magnesium 1.8 mg/dl (1.7-2.4); Phosphorus 3.1 mg/dl (2.5-4.9); Potassium 3.9 mmol/L (3.5-5.1); Total Protein 6.3 gm/dl (6.0-8.3)
[2023-07-24 08:22] LABS: Hematocrit (blood only) 36.5 % (42.0-52.0); Hemoglobin 12.2 g/dl (14.0-18.0); Mean Corpuscular Hemoglobin 32.1 pg (25.0-34.0); Mean Corpuscular Hgb Conc 33.4 g/dL (32.0-36.0); Mean Corpuscular Volume 96.1 fL (80.0-100.0); Mean Platelet Volume 11.6 fL (9.4-12.4); Platelet Count 90 K/uL (130-400); RDW Coefficient of Variation 13.8 % (11.5-14.5); RDW Standard Deviation 49.1 fL (36.4-46.3); White Blood Count 3.85 K/ul (4.8-10.8)
[2023-07-24 08:25] LABS: Troponin I High Sensitivity 140.3 pg/ml (0-20)
[2023-07-24] MEDS: ENOXAPARIN INJ 30 MG/0.3 ML SYR SQ SCH (09:25)
--- NOTE | 2023-07-24 10:04 | Ultrasound Report ---
SCROTAL ULTRASOUND CLINICAL HISTORY: scrotal edema COMPARISON STUDY: None. TECHNIQUE: Grayscale and color and duplex Doppler sonography of the scrotum was performed. FINDINGS: A large left hydrocele is noted. A right hydrocele may also be present. The right testis me asures 5.9 x 2.9 x 3.5 cm and the left measures 5.1 x 1.4 x 2.7 cm. There is color flow within each t estis. Dilated rete testes are incidentally noted. No evidence for epididymitis. IMPRESSION: 1. Large left hydrocele. Possible right hydrocele. 2. No testicular mass. No evidence for testicular torsion. ACT 112: Negative or not required by law. Electronically signed by: Silvestre Jones M.D. 07/24/2023 10:02 AM
--- NOTE | 2023-07-24 10:58 | Cardiology Consultation ---
Date of Consultation July 24, 2023 Assessment & Plan (1) Elevated troponin: (2) Tachycardia: (3) Altered mental status: (4) Fever: (5) Mild aortic stenosis: Initial vital signs on arrival yesterday included a mild fever of 38.2 C, afebrile in the meantime. Procalcitonin level minimally elevated. Presentation suggests underlying sepsis, the cause of which has yet to be delineated. CT of the abdomen pelvis unrevealing. CT angiogram of the chest was negative for pulmonary embolism, but the radiology report describes practice to 6 and infectious/inflammatory process that is perhaps chronic such as an atypical Mycobacterium infection. EKG x 2 notable for sinus tachycardia with mildly elevated ventricular rates, no evidence of ischemia. Echocardiogram performed this morning and reviewed independently revealed no regional wall motion abnormalities, LVEF in the range of 55 to 60%. The aortic valve is mildly calcified with mild aortic valve stenosis. Comment: Mild elevation in ICMP troponin likely on the basis of myocardial strain with noted sinus tachycardia on telemetry as well as sinus arrhythmia and frequent PACs. Heart rate hovering just above 100 bpm at present, with brief episodes as high as 130 bpm. Patient still confused although I am not sure what is baseline mental status. Agree with empiric antibiotics for now. Blood cultures have been obtained, results of which are pending without growth thus far. Echocardiogram reveals normal biventricular systolic function with findings of mild aortic stenosis. In addition antibiotics, will add low-dose metoprolol 12.5 mg twice daily, but it could be that the degree of tachycardia is physiologic and due to an underlying infectious state. No additional cardiac testing with regards to ischemic heart disease felt to be indicated at present. Joni Dean DO History of Present Illness Attending Physician: Prasanth Alcocer MD History of Present Illness Mr Saldaña is 74 year old male seen in cardiology consultation per the request of Dr Alcocer for advice with regards to elevation in the HS troponin level. Pt seen in room 211. He states he lives with his sister. He is not able to provide much subjective history. The only discomfort he told me about was his back when he sat up. Denies Chest discomfort or difficulty breathing. Per review of the admission history and physical he presented to the emergency department yesterday via EMS after sister found him lying on the floor unable to get up on his own. Allergies Allergy/AdvReac Type Severity Reaction Status Date / Time No Known Allergies Allergy Mild Verified 09/13/16 10:03 Home Medications Medication Instructions Recorded Confirmed Type No Known Home Medications 07/23/23 07/23/23 History Patient History Medical History Adhesive capsulitis of left shoulder Surgical History History of tonsillectomy History of thumb surgery Family History Other Heart disease Social History Smoking Status: Current every day smoker Hx Alcohol Use: No Hx Substance Use: No Preferred Language: Arabic Communication Ability: Effective Records Management Specialist Required: No Beliefs That Will Affect Care: None Current Living Situation: Alone Other Information That Helps Us Care for You: No Feels Safe at Home: Yes Safety Concerns: Feels Safe At This Time Assistive Devices: None Review of Systems Review of Systems: Unobtainable due to cognitive status Physical Exam Physical Exam: General: no acute distress Eyes: conjunctiva are pink and non-injected, sclera clear Mouth: dentition in poor repair Neck: normal jugular venous pulse, no hepatojugular reflux Chest: normal shape and normal respiratory effort Lungs: clear to auscultation and percussion Cardiac Exam: - regular heart sounds, tachycardic, 1/6 SM , or gallops, no jugular venous distention Abdomen: abdomen soft, non-tender, no abnormal masses and no hepatosplenomegaly Extremities: no edema and no cyanosis Neuro:awake, conversant, follows commands, no focal motor deficits Results & Data Vital Signs (Past 12 Hours) Vital Signs Temp Pulse Pulse Resp BP Pulse Ox O2 Del Method 07/24/23 09:49 Room Air 07/24/23 03:22 36.6 C 109 H 18 123/72 93 Room Air 07/24/23 00:00 100 H 07/23/23 22:58 36.9 C 110 H 25 H 126/65 91 Room Air Laboratory Results Cardiac Enzymes 07/23/23 07/23/23 07/24/23 Range/Units 12:14 18:25 00:37 AST (13-39) U/L Troponin I High Sens 83.7 H* D 140.8 H* D 142.6 H* (0-20) pg/ml 07/24/23 Range/Units 07:46 AST 260 H (13-39) U/L Troponin I High Sens 140.3 H* (0-20) pg/ml CBC 07/24/23 Range/Units 07:46 WBC 3.85 L (4.8-10.8) K/ul RBC 3.80 L (4.70-6.10) M/uL Hgb 12.2 L (14.0-18.0) g/dl Hct 36.5 L (42.0-52.0) % Plt Count 90 L (130-400) K/uL Comprehensive Metabolic Panel 07/24/23 Range/Units 07:46 Sodium 131 L (136-145) mmol/L Potassium 3.9 (3.5-5.1) mmol/L Chloride 99 (98-107) mmol/L Carbon Dioxide 25 (21-32) mmol/L BUN 21 (6-23) mg/dl Creatinine 0.89 (0.6-1.4) mg/dl Glucose 104 H (70-99(Fasting)) mg/dl Calcium 8.2 L (8.6-10.3) mg/dl AST 260 H (13-39) U/L ALT 63 H (7-52) U/L Alkaline Phosphatase 64 (34-104) U/L Total Protein 6.3 (6.0-8.3) gm/dl Albumin 3.3 L (3.4-5.0) gm/dl Intake and Output 07/23/23 07/24/23 07/24/23 22:59 06:59 14:59 Intake Total 765 / 2240 375 / 2240 100 / 100 Balance 765 / 2240 375 / 2240 100 / 100 Intake: IV 525 / 2000 375 / 2000 100 / 100 Piperacillin/Tazobactam 4.5 gm 100 / 100 100 / 100 In Dextrose 5% Mini-B 100 ml @ 25 mls/hr IV Q8H [facility] Rx#: [id number] Vancomycin HCl 1,250 mg In 275 / 275 Sodium Chloride 0.9% 250 ml @ 200 mls/hr IV Q24H [facility] Rx#: [id number] Vancomycin HCl 1,250 mg In 525 / 525 Sodium Chloride 0.9% 500 ml @ 200 mls/hr IV NOW ONE Rx#: [id number] Oral 240 / 240 Other: Other Intake Source sips # Unmeasured Voids 1 Weight 60.9 kg Weight Measurement Method Built in [facility] (3) Altered mental status Altered mental status type: unspecified Qualified Code(s): R41.82 - Altered mental status, unspecified (4) Fever Fever type: unspecified Qualified Code(s): R50.9 - Fever, unspecified
[2023-07-24] MEDS: METOPROLOL TARTRATE 25 MG TAB PO SCH (12:17)
--- NOTE | 2023-07-24 12:19 | Pharmacy Report ---
Pharmacy PK ABX Note - Date of Service July 24, 2023 - Assessment and Plan Assessment 73 year old M started on Vancomycin and Zosyn empirically yesterday due to fever and weakness. Unknown source of infection. Blood cultures pending. Day #2 of antimicrobial therapy. Plan Vancomycin * Loading dose: 1250 mg IV x 1 given yesterday afternoon. * Maintenance dose: 1250 mg IV every 24 hours * Regimen is predicted to achieve target AUC/MARCELLO of 400-600 mg/L.hr * Random level ordered for: 07/25/23 @ 12:00 Pharmacy will continue to follow and will adjust dose/frequency as necessary. Thank you. Pharmacy has transitioned to AUC monitoring for vancomycin. AUC/MARCELLO is the preferred PK/PD target and is associated with decreased risk of nephrotoxicity compared to traditional trough targets.
--- NOTE | 2023-07-24 19:08 | Urology Consultation ---
<Statement entered by Art Sanchez MD - 07/25/23 07:51> I have seen and discussed Mr. Saldaña case with Ge Hammond PA-C and agree with the above documentation. Swelling of the left hemiscrotum is consistent with hydrocele. I have very low suspicion this is contributing to his infectious symptoms. This can be managed as an outpatient or could be safely observed if it is not bothersome. We will arrange outpatient follow-up -Art Sanchez MD. Date of Consultation July 24, 2023 Assessment & Plan (1) Hydrocele: The patient has been admitted to the hospital secondary to altered mental status, fever, and concern for infectious process He is currently receiving broad-spectrum antibiotics in form of Zosyn and vancomycin due to suspected pulmonary source. Appropriate cultures have been sent and are pending. Will defer further management of this aspect of the shaunna lord's care to the primary service. From a urologic perspective we have been asked to see the patient for hydrocele. At the present time there is not appear to be any infectious concerns for the patient's hydrocele. As this does not appear to be causing the patient any discomfort no acute urologic intervention is required. I did discuss with the patient if this continues to cause him trouble consideration be given to performing a drainage procedure but this can be pursued as an outpatient History of Present Illness Reason for Consultation: Hydrocele Attending Physician: Prasanth Alcocer MD History of Present Illness This is a 73-year-old male who was admitted to the hospital on 07/23/2023 secondary to altered mental status. Per reports the patient's sister found him lying on the floor the morning of admission unable to get up. Family reported that the patient seem more confused than what was in his usual state. Patient was admitted to the hospital with concern for an infectious process as the patient was noted to be febrile. The patient was noted to have scrotal edema and therefore urology was consulted as a scrotal ultrasound showed a hydrocele as noted below. When I visited with the patient at the bedside he was resting comfortably in bed and he denied any testicular pain. He believes that his scrotum has been swollen for a "long time." The patient denies any dysuria or urinary hesitancy. He denies any back or flank pain. He denies any abdominal pain. Since admission to the hospital the patient has had labs and imaging which I independently reviewed. He did have a chest x-ray that showed no evidence of pneumonia radiographically. He had a CT scan of the head that showed no evidence of acute stroke or other intracranial process such as hemorrhage. CT scan of the abdomen pelvis showed no acute abnormalities. Specifically there were no obstructive kidney stones noted. CT scan of the chest showed no evidence of pulmonary emboli. There was bronchiectasis and a potential inf ectious/inflammatory process noted with the radiographic appearance concerning for an atypical mycobacterial infection. The patient had bilateral lower extremity venous Dopplers that showed no evidence of DVT bilaterally. A scrotal ultrasound was performed that showed a possible right hydrocele and a large left hydrocele. There is no evidence of testicular torsion or testicular masses. Labs included CBC were white blood cell count was 3.8. Hemoglobin and hematocrit 12.2 and 36.5. Platelet count was 90,000. Chemistry profile showed sodium was 131 with a normal potassium. BUN and creatinine were normal. Urinalysis was performed this admission that showed cloudy urine which was negative for nitrites and negative for leukocyte Estrace. There is no bacteria on this study. There is no pyuria on this study. At the time of my interview the patient was resting comfortably bed and he was in no distress. Allergies Allergy/AdvReac Type Severity Reaction Status Date / Time No Known Allergies Allergy Mild Verified 09/13/16 10:03 Home Medications Medication Instructions Recorded Confirmed Type No Known Home Medications 07/23/23 07/23/23 History Patient History Medical History Adhesive capsulitis of left shoulder Surgical History History of tonsillectomy History of thumb surgery Family History Other Heart disease Social History Smoking Status: Current every day smoker Hx Alcohol Use: No Hx Substance Use: No Preferred Language: Vincentian Communication Ability: Effective Passport Support Associate Required: No Beliefs That Will Affect Care: None Current Living Situation: Alone Other Information That Helps Us Care for You: No Feels Safe at Home: Yes Safety Concerns: Feels Safe At This Time Assistive Devices: None Review of Systems Review of Systems: All systems reviewed & are unremarkable except as noted in HPI & below Physical Exam Constitutional: WD/WN, vitals as above Eyes: no conjunctival abnormality ENMT: Ears: + hearing impairment (Loud phonation required in order for patient to hear this provider); no external ear abnormality Dentition does not appear to be in a good state of repair Neck: trachea midline Respiratory: normal respiratory effort; no respiratory distress and no labored breathing Cardiovascular: Rate/Rhythm: regular rate and regular rhythm Gastrointestinal (Abdomen): Soft and nontender. There is no rebound tenderness or guarding Musculoskeletal: No calf tenderness Skin: no rashes Neurologic: moves all extremities Genitourinary: No CVA tenderness with percussion. Patient's genitals were examined. The patient had a normal appearing penis. The patient did have marked swelling of his scrotum particularly on the left side. This area was nontender to palpation. There is no erythema. I do not appreciate any masses. There are no areas of eschar. There are no areas of drainage. Results & Data Vital Signs (Past 12 Hours) Vital Signs Temp Pulse Pulse Resp BP Pulse Ox O2 Del Method 07/24/23 16:02 37.2 C 79 18 115/64 91 Room Air 07/24/23 14:46 114 H 07/24/23 12:27 37.8 C H 104 H 19 133/65 95 Room Air 07/24/23 12:26 102 H 07/24/23 09:49 Room Air PG Care Time/CCT Total # of Minutes Spent Total Time Spent with Patient: Total time spent is greater than 50% in coordination of care (as documented) at patient's floor/unit and/or counseling patient: Coding Level of Care Code 47949 INT INP/OBS CARE 3/75MIN Diagnoses Hydrocele N43.3
[2023-07-25 06:12] LABS: Hematocrit (blood only) 33.2 % (42.0-52.0); Hemoglobin 11.3 g/dl (14.0-18.0); Mean Corpuscular Hemoglobin 32.6 pg (25.0-34.0); Mean Corpuscular Volume 95.7 fL (80.0-100.0); Mean Platelet Volume 12.5 fL (9.4-12.4); Platelet Count 75 K/uL (130-400); RDW Coefficient of Variation 13.7 % (11.5-14.5); RDW Standard Deviation 48.5 fL (36.4-46.3); Red Blood Count 3.47 M/uL (4.70-6.10); White Blood Count 4.25 K/ul (4.8-10.8)
[2023-07-25 06:23] LABS: BUN Creatinine Ratio 21.9 (10-20); Calcium 8.3 mg/dl (8.6-10.3); Creatinine Clr Calc Pharmacy 57.8 ml/min; Est GFR (African American) 90.5 ml/min; Est GFR (Non-African American) 78.1 ml/min; Phosphorus 3.6 mg/dl (2.5-4.9); Potassium 4.1 mmol/L (3.5-5.1)
--- NOTE | 2023-07-25 12:57 | Pharmacy Report ---
Pharmacy PK ABX Note - Date of Service July 25, 2023 - Assessment and Plan Assessment 07/24: * Day #3 empiric Vancomycin + Zosyn for unclear source of infxn. Per hospitalist, continue both abx for now (abx extended additional 48 hrs duration) * BLCXs no growth to date; Resp BioFire negative (includes mycoplasma pneumoniae and chlamydia pneumoniae; Legionella UA not ordered/collected; MRSA nasal swab not ordered/collected; Urine cx no growth; Procal 0.87 on 07/22 (not repeated) * Tmax 37.8 last 24 hrs; Leukopenia noted on today CBC * Renal fxn stable, vancomycin level of 8.8 drawn at ~1200 today indicates need for increase in dosage. 07/23: * 73 year old M started on Vancomycin and Zosyn empirically yesterday due to fever and weakness. Unknown source of infection. Blood cultures pending. * Day #2 of antimicrobial therapy. Plan Vancomycin * New maint dose: 1000mg Q 12 hrs * Regimen is predicted to achieve target AUC/MARCELLO of 400-600 mg/L.hr * Random level ordered for: 07/26/23 @ 12:00 Pharmacy will continue to follow and will adjust dose/frequency as necessary. Thank you. Pharmacy has transitioned to AUC monitoring for vancomycin. AUC/MARCELLO is the preferred PK/PD target and is associated with decreased risk of nephrotoxicity compared to traditional trough targets.
--- NOTE | 2023-07-25 15:09 | Hospitalist Progress Note ---
Date of Service July 25, 2023 Assessment & Plan (1) Altered mental status: Plan: This is a 73 y/o male who does not routinely follow with medical providers who presents with fever, tachycardia, AMS - after his sister found him lying on the floor unable to get up on his own. There is a question of undiagnosed dementia as patient refuses to seek medical care most of the time. His family reports that he is more confused and tired than usual. On initial presentation to the ED, he was febrile and tachycardic. Resp panel was negative, urine testing pending. Possible sepsis, poss. pna - Admitted to PCU - Resp panel was negative - CXR negative - WBC wnl - Procal 0.87 - CT PE - No evidence of pulmonary embolus. Bronchiectasis and infectious/inflammatory process noted, likely chronic such as from atypical mycobacterial infection. Findings are increased from 2011 and mild superimposed pneumonia cannot be excluded. - Doppler LE negative for DVT - CT abd/pelvis - No acute abnormalities. - Ucultx negative - Blood cultures - no growth in 48 hrs - Labs for tickborne disease - pending, Lyme negative - Stool PCR pending - Started broad spectrum antibiotics as clinical picture c/w infection of unclear source (Zosyn, vancomycin) - guafenesin, flutter valve, IS - cont. to closely monitor and follow cultx - ID consulted (2) Fever: Plan: See plan for #1 Labs for tickborne disease Stool PCR Scrotal edema/ hydrocele - nontender - obtained US, c/w large left hydrocele - urology consulted Elevated LFTs - no abd. pain on palpation on phys. exam - check LFTs tmrw - consider US liver, hep. panel, GI consult if not trending down (3) Elevated troponin: Plan: Initial troponin in the ED was 49.7 - EKG reviewed and without ischemic changes at present - repeat Troponin trending up - obtained echo and discussed w/ cardiology Per cardiology - Mild elevation in troponin likely on the basis of myocardial strain with noted sinus tachycardia on telemetry as well as sinus arrhythmia and frequent PACs. Heart rate hovering just above 100 bpm at present, with brief episodes as high as 130 bpm. Agree with empiric antibiotics for now. Blood cultures have been obtained, results of which are pending without growth thus far. Echocardiogram reveals normal biventricular systolic function with findings of mild aortic stenosis. In addition antibiotics, will add low-dose metoprolol 12.5 mg twice daily, but it could be that the degree of tachycardia is physiologic and due to an underlying infectious state. No additional cardiac testing with regards to ischemic heart disease felt to be indicated at present. Plan Code status: DNR/DNI per sisters DVT Prophylaxis: Lovenox Dispo: PCU Admission and Anticipated Discharge Date Admission Date: July 23, 2023 Subjective Pt seen in follow up of fever, tachycardia, AMS, elev. trop. Currently laying in bed in NAD Denies any chest pain, shortness of breath, abd. pain - denies any fever, chills, discomfort Review of Systems Review of Systems: All systems reviewed & are unremarkable except as noted in Subjective Physical Exam Physical Exam: Constitutional: WD/WN, vitals as a em Eyes: PERRL, conjunctiva e normal, anicteri c sclerae ENMT: external ear and n ose normal, + poor dentition Neck: normal visual insp ection Respiratory: normal respiratory effort, lungs lashaun ar to auscultation Cardiovascular: Rate/Rhythm: rrr Chest (Breasts): Chest: normal insp ection of chest Gastrointestinal ( Abdomen): Inspection/Auscult ation: abdomen nor mal to inspection (soft) and normal bowel sounds Musculoskeletal: Extremities: extre mities normal to i nspection Skin: no rashes, warm an d dry Neurologic: PERRL, EOMI, no fa ce palsy, no dysar thria, moves extre mities Genitourinary: + edema (scrotal) Results & Data Results & Data Vital Signs (Past 12 Hours) Vital Signs Temp Pulse Pulse Resp BP Pulse Ox O2 Del Method 07/25/23 11:00 36.7 C 74 18 116/61 97 Room Air 07/25/23 08:00 80 07/25/23 07:30 36.7 C 80 20 102/56 L 96 Room Air 07/25/23 07:26 Room Air Laboratory Results 07/25/23 07/25/23 Range/Units 12:08 05:44 WBC 4.25 L (4.8-10.8) K/ul RBC 3.47 L (4.70-6.10) M/uL Hgb 11.3 L (14.0-18.0) g/dl Hct 33.2 L (42.0-52.0) % MCV 95.7 (80.0-100.0) fL MCH 32.6 (25.0-34.0) pg MCHC 34.0 (32.0-36.0) g/dL RDW Std Deviation 48.5 H (36.4-46.3) fL RDW Coeff of Tara 13.7 (11.5-14.5) % Plt Count 75 L (130-400) K/uL MPV 12.5 H (9.4-12.4) fL Sodium 133 L (136-145) mmol/L Potassium 4.1 (3.5-5.1) mmol/L Chloride 100 (98-107) mmol/L Carbon Dioxide 28 (21-32) mmol/L Anion Gap 5 (3-11) BUN 21 (6-23) mg/dl Creatinine 0.96 (0.6-1.4) mg/dl Est Cr Clr Drug Dosing 57.8 ml/min Est GFR ( Amer) 90.5 ml/min Est GFR (Non-Af Amer) 78.1 ml/min BUN/Creatinine Ratio 21.9 H (10-20) Glucose 95 (70-99(Fasting)) mg/dl Calcium 8.3 L (8.6-10.3) mg/dl Phosphorus 3.6 (2.5-4.9) mg/dl Magnesium 2.0 (1.7-2.4) mg/dl Random Vancomycin 8.8 L (10-20) mcg/ml Medications Administered Current Inpatient Medications Acetaminophen (Acetaminophen 325 Mg Tab) 650 mg PO Q4H PRN PRN Reason: Pain or Fever Stop: 08/22/23 14:17 Enoxaparin Sodium (Enoxaparin Inj 30 Mg/0.3 Ml Syr) 30 mg SQ QAM DELIA Stop: 08/23/23 08:59 Last Admin: 07/25/23 07:20 Dose: Not Given Guaifenesin (Guaifenesin 600 Mg Tabcr) 600 mg PO Q12 DELIA Stop: 08/22/23 14:09 Last Admin: 07/25/23 07:20 Dose: 600 mg Piperacillin Sod/Tazobactam (Sod 4.5 gm/ Dextrose) 100 mls @ 25 mls/hr IV Q8H DELIA; Protocol Stop: 07/27/23 18:59 Last Infusion: 07/25/23 14:55 Dose: Infused Vancomycin HCl 1,000 mg/ (Sodium Chloride) 270 mls @ 200 mls/hr IV Q12H [facility] Stop: 07/27/23 13:59 Metoprolol Tartrate (Metoprolol Tartrate 25 Mg Tab) 12.5 mg PO BID [facility] Stop: 08/23/23 10:44 Last Admin: 07/25/23 07:20 Dose: 12.5 mg Miscellaneous Information (Vancomycin Consult Active) 1 each N/A UD PRN PRN Reason: Consult Stop: 08/22/23 12:56
[2023-07-25] MEDS: VANCOMYCIN HCL 1,000 MG in SODIUM CHLORIDE 0.9% 250 ML IV SCH (16:17)
[2023-07-26 06:49] LABS: Hematocrit (blood only) 30.7 % (42.0-52.0); Hemoglobin 10.6 g/dl (14.0-18.0); Mean Corpuscular Hgb Conc 34.5 g/dL (32.0-36.0); Mean Corpuscular Volume 95.6 fL (80.0-100.0); Mean Platelet Volume 13.4 fL (9.4-12.4); Platelet Count 80 K/uL (130-400); RDW Coefficient of Variation 13.7 % (11.5-14.5); RDW Standard Deviation 48.4 fL (36.4-46.3); Red Blood Count 3.21 M/uL (4.70-6.10); White Blood Count 6.55 K/ul (4.8-10.8)
[2023-07-26 07:01] LABS: Albumin Globulin Ratio 1.1 (0.9-2); Albumin Level 2.9 gm/dl (3.4-5.0); BUN Creatinine Ratio 21.3 (10-20); Bilirubin,Total 0.4 mg/dl (0.2-1.0); Calcium 7.9 mg/dl (8.6-10.3); Creatinine Clr Calc Pharmacy 63.3 ml/min; Est GFR (African American) 98.3 ml/min; Est GFR (Non-African American) 84.8 ml/min; Globulin 2.6 gm/dl (2.5-4.0); Magnesium 1.9 mg/dl (1.7-2.4); Phosphorus 3.3 mg/dl (2.5-4.9); Potassium 3.8 mmol/L (3.5-5.1); Total Protein 5.5 gm/dl (6.0-8.3)
--- NOTE | 2023-07-26 14:05 | Pharmacy Report ---
Pharmacy PK ABX Note - Date of Service July 26, 2023 - Assessment and Plan Assessment 07/25: * Day # 4 empiric Vancomycin + Zosyn for unclear source of infxn. * All micro remains negative to date. MRSA nasal swab negative however this sample was drawn > 48 hrs after vancomycin initiated * Vanco level drawn this afternoon. Level = 11.7 07/24: * Day #3 empiric Vancomycin + Zosyn for unclear source of infxn. Per hospitalist, continue both abx for now (abx extended additional 48 hrs duration) * BLCXs no growth to date; Resp BioFire negative (includes mycoplasma pneumoniae and chlamydia pneumoniae; Legionella UA not ordered/collected; MRSA nasal swab not ordered/collected; Urine cx no growth; Procal 0.87 on 07/22 (not repeated) * Tmax 37.8 last 24 hrs; Leukopenia noted on today CBC * Renal fxn stable, vancomycin level of 8.8 drawn at ~1200 today indicates need for increase in dosage. 07/23: * 73 year old M started on Vancomycin and Zosyn empirically yesterday due to fever and weakness. Unknown source of infection. Blood cultures pending. * Day #2 of antimicrobial therapy. Plan Vancomycin * Continue maint dose: 1000mg Q 12 hrs * Regimen is still predicted to achieve target AUC/MARCELLO of 400-600 mg/L.hr * Will repeat level in 2-3 days if therapy extended Pharmacy will continue to follow and will adjust dose/frequency as necessary. Thank you. Pharmacy has transitioned to AUC monitoring for vancomycin. AUC/MARCELLO is the preferred PK/PD target and is associated with decreased risk of nephrotoxicity compared to traditional trough targets.
--- NOTE | 2023-07-26 14:49 | Infectious Disease Consult ---
Date of Service July 26, 2023 Telehealth Information I performed this visit using a real-time telehealth connection between my location and the patients location ([facility]). After connecting through interactive tele-video, patient was identified by name and date of and/or wristband check.Patient (or authorized healthcare used equipment sales representative) was informed that this was a telemedicine visit and it was being conducted confidentially over secure lines. My office door was closed and no one else was present in the room with me.Patient (or authorized healthcare used equipment sales representative) provided consent to proceed with the visit, expressed an understanding of privacy and security of the telemedicine visit, and gave permission to have a hospital used equipment sales representative in the room in order to assist with the visit and to conduct portions of the visit, as needed. I informed the patient (or authorized healthcare used equipment sales representative) that I reviewed their record and presented the opportunity for them to ask any questions regarding the visit today. The patient agreed to participate. Assessment & Plan (1) Fever: Plan: 73-year-old male with generalized nonspecific symptoms which included fever, hypoxia. CT did identify tree-in-bud nodularities in pt without overt respiratory symptoms other than hypoxia. it is possible that he had community- acquired pneumonia without overt CT findings with an atypical organism or even viral in nature as his most likely. He received a significant workup without obvious actionable results. He is currently on room air, states he feels well and has improved and given this would recommend completion of antibiotics for 7 days. tree-in-bud nodularities can represent myriad of etiologies which also include noninfectious and given that he has significant bronchiectasis would suggest he has underlying lung disease as he was a tobacco user. Would recommend follow-up with Pulmonary outpatient for monitoring, if his symptoms continue to progress and or repeat CT scan showing worsening of nodules would recommend a bronchoscopy at that point with cultures. - Can transition to Levaquin 750 mg q.day to complete a total of 7 days which includes antibiotics received in hospital - follow up with Pulmonology outpatient Appreciate consultation, please do not hesitate to reach out for any further questions or concerns. Geovany Galeana MD PGY4 Infectious Disease History of Present Illness History of Present Illness 73-year-old male presented after being found down past medical history is questionable given reluctance to seek medical care, possible diagnosis of dementia unspecified, significant tobacco use. Presentation patient was tachycardic, hypoxic requiring 6 L febrile at 38.2. Patient was initiated on broad-spectrum antibiotics vancomycin and Zosyn. CTA of chest without evidence of PE, did identify tree-in-bud nodularity most predominantly in right middle lobe and anterior left, bronchiectasis without overt consolidations. Patient was without elevation WBC, currently afebrile, blood cultures without growth, urine culture without growth, pathologist review of blood smear did not reveal any obvious Babesia/anaplasma. Lyme serology negative. Patient did have a swelling of his left scrotum, ultrasound revealed hydrocele without underlying inflammation, Urology has been consulted, without suspicion that this is currently contributing to current presentation. Patient is not currently requiring any additional oxygen, denies any respiratory symptoms in the past, wishing to go home. He denies any musculoskeletal pain, any anorexia, diarrhea, abdominal pain, rashes. Allergies Allergy/AdvReac Type Severity Reaction Status Date / Time No Known Allergies Allergy Mild Verified 09/13/16 10:03 Home Medications Medication Instructions Recorded Confirmed Type No Known Home Medications 07/23/23 07/23/23 History Patient History Medical History Adhesive capsulitis of left shoulder Surgical History History of tonsillectomy History of thumb surgery Family History Other Heart disease Social History Smoking Status: Current every day smoker Hx Alcohol Use: No Hx Substance Use: No Preferred Language: Sinhala Communication Ability: Effective Freight Car Inspector Required: No Beliefs That Will Affect Care: None Current Living Situation: Alone Other Information That Helps Us Care for You: No Feels Safe at Home: Yes Safety Concerns: Feels Safe At This Time Assistive Devices: None Review of Systems CONSTITUTIONAL: Denies weight loss, fever and chills. HEENT: Denies changes in vision and hearing. RESPIRATORY: Denies SOB and cough. CV: Denies palpitations and CP. GI: Denies abdominal pain, nausea, vomiting and diarrhea. : Denies dysuria and urinary frequency. MSK: Denies myalgia and joint pain. SKIN: Denies rash and pruritus. NEUROLOGICAL: Denies headache and syncope PSYCHIATRIC: Denies recent changes in mood. Denies anxiety and depression. Results & Data Vital Signs (Past 12 Hours) Vital Signs Temp Pulse Pulse Resp BP Pulse Ox O2 Del Method 07/26/23 12:00 83 07/26/23 11:12 Room Air 07/26/23 11:00 36.6 C 75 18 121/61 98 Room Air 07/26/23 08:00 36.6 C 88 20 117/63 96 Room Air 07/26/23 03:03 36.7 C 82 18 122/57 L 95 Room Air Diagnostic Findings 07/23/23 10:27 Aerobic Blood Culture - Preliminary Blood No growth in Aerobic bottle after 48 hours. Anaerobic Blood Culture - Preliminary No growth in Anaerobic bottle after 48 hours. 07/23/23 10:07 Aerobic Blood Culture - Preliminary Blood No growth in Aerobic bottle after 48 hours. Anaerobic Blood Culture - Preliminary No growth in Anaerobic bottle after 48 hours. 07/26/23 07/26/23 07/26/23 11:59 08:46 05:52 WBC 6.55 RBC 3.21 L Hgb 10.6 L Hct 30.7 L MCV 95.6 MCH 33.0 MCHC 34.5 RDW Std Deviation 48.4 H RDW Coeff of Tara 13.7 Plt Count 80 L MPV 13.4 H Sodium 136 Potassium 3.8 Chloride 104 Carbon Dioxide 28 Anion Gap 4 BUN 19 Creatinine 0.89 Est Cr Clr Drug Dosing 63.3 Est GFR ( Amer) 98.3 Est GFR (Non-Af Amer) 84.8 BUN/Creatinine Ratio 21.3 H Glucose 106 H Calcium 7.9 L Phosphorus 3.3 Magnesium 1.9 Total Bilirubin 0.4 AST 160 H ALT 64 H Alkaline Phosphatase 55 Total Protein 5.5 L Albumin 2.9 L Globulin 2.6 Albumin/Globulin Ratio 1.1 Nasal Screen MRSA (PCR) Negative Random Vancomycin 11.7
--- NOTE | 2023-07-26 17:51 | Hospitalist Progress Note ---
Date of Service July 26, 2023 Assessment & Plan (1) Altered mental status: (2) Fever: (3) Elevated troponin: Plan Fever- resolved. labs and imaging reviewed. Procal 0.87, urine and blood clx negative. Reviewed ID notes- " tree-in-bud nodularities can represent myriad of etiologies which also include noninfectious and given that he has significant bronchiectasis would suggest he has underlying lung disease as he was a tobacco user. Would recommend follow-up with Pulmonary outpatient for monitoring, if his symptoms continue to progress and or repeat CT scan showing worsening of nodules would recommend a bronchoscopy at that point with cultures." - Continue IV Abx inhouse and change to po levaquin at discharge for total of 7 days. F/u with pulm as OP. Elevated trop- mild, due to demand ischemia. seen by cardio. Continue metoprolol 12. 5 bid AMS- resolved DVT ppx- sc lovenox Dispo- Discharge home tomorrow on po antibiotics Time spent- approx 35 mins Admission and Anticipated Discharge Date Admission Date: July 23, 2023 Subjective Patient was seen and examined at bedside. He feels good and wants to go home. No more fever. No N/V, CP, SOB. Review of Systems Review of Systems: All systems reviewed & are unremarkable except as noted in Subjective Physical Exam Physical Exam: General: Lying comfortably in bed, not in distress, on room air HEENT: MINH, MMM, poor dentition Chest: Clear breath sounds bilaterally, no wheezes or crackles CVS: Regular rate and rhythm, normal heart sounds, no murmur Abdomen: Soft, non tender, not distended, normal bowel sounds Neuro: Awake, alert, oriented, conversing well, non focal Extremities: No cyanosis, clubbing or edema Results & Data Results & Data Vital Signs (Past 12 Hours) Vital Signs Temp Pulse Pulse Resp BP Pulse Ox O2 Del Method 07/26/23 16:00 36.6 C 72 20 106/63 94 Room Air 07/26/23 12:00 83 07/26/23 11:12 Room Air 07/26/23 11:00 36.6 C 75 18 121/61 98 Room Air 07/26/23 08:00 36.6 C 88 20 117/63 96 Room Air
[2023-07-27 07:47] VITALS: RESP 20
[2023-07-27 08:20] LABS: Creatinine Clr Calc Pharmacy 70.8 ml/min; Est GFR (African American) 102.7 ml/min; Est GFR (Non-African American) 88.6 ml/min; Magnesium 2.1 mg/dl (1.7-2.4); Phosphorus 3.1 mg/dl (2.5-4.9)
[2023-07-27 08:30] LABS: Hematocrit (blood only) 34.6 % (42.0-52.0); Hemoglobin 11.6 g/dl (14.0-18.0); Mean Corpuscular Hemoglobin 32.3 pg (25.0-34.0); Mean Corpuscular Hgb Conc 33.5 g/dL (32.0-36.0); Mean Corpuscular Volume 96.4 fL (80.0-100.0); Mean Platelet Volume 13.3 fL (9.4-12.4); Platelet Count 119 K/uL (130-400); RDW Coefficient of Variation 13.9 % (11.5-14.5); RDW Standard Deviation 49.3 fL (36.4-46.3); Red Blood Count 3.59 M/uL (4.70-6.10); White Blood Count 8.33 K/ul (4.8-10.8)
[2023-07-27] MEDS: levoFLOXacin 750 MG TAB PO SCH (09:04)
[2023-07-27 10:24] VITALS: BP 93/41; PULSE 76; TEMP 98.1; O2SAT 98
--- NOTE | 2023-07-27 13:00 | Discharge Summary ---
Date of Service July 27, 2023 Admission HPI Per Admitting Provider This is a 73 y/o male who does not routinely follow with medical providers who presented to the ED today via EMS after his sister found him lying on the floor this morning, unable to get up on his own. History from the patient is limited due to his current confusion so most of history was obtained from his sisters who are at the bedside. His sister reports that pt has been sleeping more than usual the last several days. Yesterday, he slept most of the day and refused to eat anything. This morning, when she went to check on pt, he was having trouble getting dressed, which he does not usually have an issue with. He declined her help so she left and came back in a few minutes to check on him. When she came back, pt was lying on the floor and couldn't get up on this own. When she and her nephew attempted to get patient up, he was very stiff and seemed off- balance. Because of this change in mental status and generalized weakness, they called EMS. When EMS arrived, pt was tachycardic, febrile, and hypoxic so they started him on 6L O2. In the ED, pulseox has been in the low 90s on room air. Pt denies any pain at present. He knows that he is in the hospital but is unsure why. He has had a cough but no diarrhea, vomiting, shortness of breath, urinary incontinence. Pt does smoke "heavily" and chews tobacco. His sisters think that he has underlying dementia although he has never been formally diagnosed as he refuses to see a healthcare provider. They note that he has been more forgetful, such as forgetting to turn off the stove or forgetting why he went into a room, and gets intermittent episodes of confusion. His current mental status is worse than his usual per their report. Admission Exam Per Admitting Provider Pt is currently laying in bed in NAD. He knows that he is in the hospital and recognizes his sisters at the bedside. he is able to answer simple questions. CV: tachycardic. Lung sounds diminished, no wheezing. Abdomen soft, nontender, +bowel sounds. No LE edema. Skin is warm and dry. Pt is moving extremities. Principal Diagnosis Fever due to pulmonary source Discharge Exam General: Lying comfortably in bed, not in distress, on room air HEENT: MINH, MMM, poor dentition Chest: Clear breath sounds bilaterally, no wheezes or crackles CVS: Regular rate and rhythm, normal heart sounds, no murmur Abdomen: Soft, non tender, not distended, normal bowel sounds Neuro: Awake, alert, oriented, conversing well, non focal Extremities: No cyanosis, clubbing or edema Discharge Data Allergies Allergy/AdvReac Type Severity Reaction Status Date / Time No Known Allergies Allergy Mild Verified 09/13/16 10:03 Consultations 07/23/23 12:24 ED Decision to Admit Stat 07/24/23 07:43 Consult Cardiology Routine 07/24/23 17:10 Consult Urology Routine 07/25/23 15:06 Consult Infectious Diseases Routine Ordered Studies 07/23/23 10:17 CT head/brain wo con Stat 07/23/23 12:57 CT Abd and Pelvis [CT abd pelvis IV con only] Stat CT angio chest PE protocol Stat 07/23/23 14:01 US venous doppler LE BI Stat 07/24/23 08:47 US scrotum/testicle Routine Laboratory Results WBC 8.33 K/ul (4.8-10.8) 07/27/23 07:24 RBC 3.59 M/uL (4.70-6.10) L 07/27/23 07:24 Hgb 11.6 g/dl (14.0-18.0) L 07/27/23 07:24 Hct 34.6 % (42.0-52.0) L 07/27/23 07:24 MCV 96.4 fL (80.0-100.0) 07/27/23 07:24 MCH 32.3 pg (25.0-34.0) 07/27/23 07:24 MCHC 33.5 g/dL (32.0-36.0) 07/27/23 07:24 RDW Std Deviation 49.3 fL (36.4-46.3) H 07/27/23 07:24 RDW Coeff of Tara 13.9 % (11.5-14.5) 07/27/23 07:24 Plt Count 119 K/uL (130-400) L 07/27/23 07:24 MPV 13.3 fL (9.4-12.4) H 07/27/23 07:24 Immature Gran % (Auto) 0.5 % 07/23/23 10:07 Neut % (Auto) 86.9 % 07/23/23 10:07 Lymph % (Auto) 7.1 % 07/23/23 10:07 Garvin % (Auto) 2.0 % 07/23/23 10:07 Eos % (Auto) 3.0 % 07/23/23 10:07 Baso % (Auto) 0.5 % 07/23/23 10:07 Neut # (Auto) 5.16 K/uL (1.40-6.50) 07/23/23 10:07 Lymph # (Auto) 0.42 K/uL (1.20-3.40) L 07/23/23 10:07 Garvin # (Auto) 0.12 K/uL (0.11-0.59) 07/23/23 10:07 Eos # (Auto) 0.18 K/uL (0.00-0.50) 07/23/23 10:07 Baso # (Auto) 0.03 K/uL (0.00-0.20) 07/23/23 10:07 Immature Gran # (Auto) 0.03 K/uL (0.01-0.20) 07/23/23 10:07 Sodium 136 mmol/L (136-145) 07/26/23 05:52 Potassium 3.8 mmol/L (3.5-5.1) 07/26/23 05:52 Chloride 104 mmol/L (98-107) 07/26/23 05:52 Carbon Dioxide 28 mmol/L (21-32) 07/26/23 05:52 Anion Gap 4 (3-11) 07/26/23 05:52 BUN 19 mg/dl (6-23) 07/26/23 05:52 Creatinine 0.80 mg/dl (0.6-1.4) 07/27/23 07:24 Est Cr Clr Drug Dosing 70.8 ml/min 07/27/23 07:24 Est GFR ( Amer) 102.7 ml/min 07/27/23 07:24 Est GFR (Non-Af Amer) 88.6 ml/min 07/27/23 07:24 BUN/Creatinine Ratio 21.3 (10-20) H 07/26/23 05:52 Glucose 106 mg/dl (70-99(Fasting)) H 07/26/23 05:52 Lactate 0.7 mmol/L (0.4-2.0) 07/23/23 10:27 Calcium 7.9 mg/dl (8.6-10.3) L 07/26/23 05:52 Ionized Calcium 1.11 mmol/L (1.12-1.32) L 07/23/23 10:59 Phosphorus 3.1 mg/dl (2.5-4.9) 07/27/23 07:24 Magnesium 2.1 mg/dl (1.7-2.4) 07/27/23 07:24 Total Bilirubin 0.4 mg/dl (0.2-1.0) 07/26/23 05:52 Direct Bilirubin 0.2 mg/dl (0-0.2) 07/23/23 10:07 AST 160 U/L (13-39) H 07/26/23 05:52 ALT 64 U/L (7-52) H 07/26/23 05:52 Alkaline Phosphatase 55 U/L (34-104) 07/26/23 05:52 Troponin I High Sens 140.3 pg/ml (0-20) H* 07/24/23 07:46 Total Protein 5.5 gm/dl (6.0-8.3) L 07/26/23 05:52 Albumin 2.9 gm/dl (3.4-5.0) L 07/26/23 05:52 Globulin 2.6 gm/dl (2.5-4.0) 07/26/23 05:52 Albumin/Globulin Ratio 1.1 (0.9-2) 07/26/23 05:52 Procalcitonin 0.87 ng/ml (0-0.5) H 07/23/23 10:07 Urine Color Dark Yellow 07/23/23 12:59 Urine Appearance Cloudy (Clear) A 07/23/23 12:59 Urine pH 5.5 (4.5-7.5) 07/23/23 12:59 Ur Specific [place] 1.023 (1.000-1.030) 07/23/23 12:59 Urine Protein 2+ (Negative) H 07/23/23 12:59 Urine Glucose (UA) Negative (Negative) 07/23/23 12:59 Urine Ketones 1+ (Negative) H 07/23/23 12:59 Urine Blood 3+ (Negative) H 07/23/23 12:59 Urine Nitrite Negative (Negative) 07/23/23 12:59 Urine Bilirubin Negative (Negative) 07/23/23 12:59 Urine Urobilinogen Negative (Negative) 07/23/23 12:59 Ur Leukocyte Esterase Negative (Negative) 07/23/23 12:59 Urine WBC (Auto) 0-5 /hpf (0-5) 07/23/23 12:59 Urine RBC (Auto) 6-10 /hpf (0-2) H 07/23/23 12:59 U Hyaline Cast (Auto) >20 /lpf (0-2) H 07/23/23 12:59 U Epithel Cells (Auto) 3-5 /hpf (0-2) H 07/23/23 12:59 Urine Bacteria (Auto) None Seen (None Seen) 07/23/23 12:59 Hyaline Casts Present /lpf (None Presnt) A 07/23/23 12:59 Granular Casts Present /lpf (None Prsent) A 07/23/23 12:59 Nasal Screen MRSA (PCR) Negative (Negative) 07/26/23 08:46 Random Vancomycin 11.7 mcg/ml (10-20) 07/26/23 11:59 Adenovirus (PCR) Not Detected (NotDetected) 07/23/23 10:28 Anaplasma Smear See Comment 07/23/23 10:07 Babesia Smear See Comment 07/23/23 10:07 B. pertussis DNA (PCR) Not Detected (NotDetected) 07/23/23 10:28 B.parapertussis DNA PCR Not Detected (NotDetected) 07/23/23 10:28 Lyme Disease Screen Negative (Negative) 07/23/23 10:07 C. pneumoniae DNA (PCR) Not Detected (NotDetected) 07/23/23 10:28 Coronavirus OC43 (PCR) Not Detected (NotDetected) 07/23/23 10:28 Coronavirus HKU1 (PCR) Not Detected (NotDetected) 07/23/23 10:28 Coronavirus 229E (PCR) Not Detected (NotDetected) 07/23/23 10:28 SARS-CoV-2 (PCR) Not Detected (NotDetected) 07/23/23 10:28 Coronavirus NL63 (PCR) Not Detected (NotDetected) 07/23/23 10:28 Human Metapneumovir PCR Not Detected (NotDetected) 07/23/23 10:28 Influenza Type A (PCR) Not Detected (NotDetected) 07/23/23 10:28 Influenza Type B (PCR) Not Detected (NotDetected) 07/23/23 10:28 M. pneumoniae (PCR) Not Detected (NotDetected) 07/23/23 10:28 Parainfluenza 1 (PCR) Not Detected (NotDetected) 07/23/23 10:28 Parainfluenza 2 (PCR) Not Detected (NotDetected) 07/23/23 10:28 Parainfluenza 3 (PCR) Not Detected (NotDetected) 07/23/23 10:28 Parainfluenza 4 (PCR) Not Detected (NotDetected) 07/23/23 10:28 RSV (PCR) Not Detected (NotDetected) 07/23/23 10:28 Entero/Rhino (PCR) Not Detected (NotDetected) 07/23/23 10:28 Impressions Chest X-Ray 07/23/23 10:17 XR chest 1V portable CLINICAL HISTORY: Sepsis TECHNIQUE: Single frontal radiograph of the chest was obtained. Comparison: Comparison is made to chest radiograph 05/22/2010 FINDINGS: No lines and tubes are seen. The cardiomediastinal silhouette is normal. The lungs are clear. No evidence of pleural effusion or pneumothorax. IMPRESSION: No acute abnormalities and in particular no radiographic evidence of pneumonia. ACT 112: Negative or not required by law. Electronically signed by: Chuy Gamboa M.D. 07/23/2023 10:[address] 07/23/23 10:17 CT head/brain wo con CLINICAL HISTORY: Confusion, lethargy, Technique: Contiguous axial CT images of the head were acquired from the base of the skull to the vertex without intravenous contrast administration. Images were viewed in brain, subdural and bone windows. Automated dose lowering techniques and/or adjustment according to patient size were utilized for this exam. Comparison: None available at the time of this dictation. Findings: The ventricles, basal cisterns, and cerebral sulci are normal. There is no acute intracranial hemorrhage or evidence of acute territorial infarction. Neither mass effect, shift of the midline structures, nor abnormal extra-axial fluid collections are shown. Imaged portions of the paranasal sinuses and mastoid air cells are clear. The orbits appear normal. There are no acute fractures of the calvaria or scalp swelling. Impression: No acute intracranial hemorrhage, no evidence of acute territorial infarction or other acute intracranial disease process. ACT 112: Negative or not required by law. Electronically signed by: Chuy Gamboa M.D. 07/23/2023 10:53 AM Abdomen/Pelvis CT 07/23/23 12:57 CT abd pelvis IV con only CLINICAL HISTORY: fever, tachycardia, AMS TECHNIQUE: Helical axial images of the abdomen and pelvis were obtained and displayed. Automated dose lowering techniques and/or adjustment according to patient size were utilized for this exam. This exam was performed with intravenous contrast. COMPARISON: None available at the time of this dictation. FINDINGS: Lower chest: For findings above the diaphragm, please see CT chest performed same day. Liver: Unremarkable. No focal lesions are seen. Gallbladder and biliary tree: No calcified gallstones. Normal caliber wall. No intra- or extrahepatic biliary ductal dilation. Pancreas: Unremarkable, no focal lesions. Spleen: Unremarkable. Adrenals: Unremarkable. Kidneys and ureters: Nonobstructive nephrolithiasis is seen. Bladder: Diffuse homogeneous wall thickening is seen. Reproductive organs: Prostatic calcifications are seen which may represent prior hemorrhage or granulomatous disease. Bowel: The appendix is normal. Lymph nodes Retroperitoneal: Unremarkable. Pelvic: Unremarkable. Mesenteric: Unremarkable. Peritoneum: Normal. Vessels: Atherosclerotic calcifications are seen. Abdominal wall: Unremarkable. Bones: Degenerative changes in the visualized spine. IMPRESSION: No acute abnormalities. ACT 112: Negative or not required by law. Electronically signed by: Chuy Gamboa M.D. 07/23/2023 1:54 PM Chest CTA 07/23/23 12:57 CT angio chest PE protocol CLINICAL HISTORY: PE TECHNIQUE: Multidetector row helical CT of the chest was performed with angiographic protocol. Coronal and sagittal reformations were obtained. Coronal and sagittal MIPS were obtained from the axial data set and were submitted for review. Automated dose lowering techniques and/or adjustment according to patient size were utilized for this exam. CT DOSE: 814.34 mGy.cm Comparison: Comparison is made to CT chest 05/22/2010 FINDINGS: Lungs and pleura: Bronchiectasis and tree-in-bud nodularity is seen most prominently in the right middle lobe and anterior left lung. Tree-in-bud nodularity is in the right upper lobe as well. Heart and pericardium: Heart size is normal. No pericardial effusion. Vessels: No evidence of pulmonary embolism. Mild atherosclerotic disease is seen. Mediastinum and eloisa: No lymphadenopathy. Thickening of the esophageal wall is noted. Chest wall and lower neck: Unremarkable. Abdomen: For findings below the diaphragm, please refer to CT of the abdomen dated the same. Bones: Degenerative changes in the thoracic spine. IMPRESSION: No evidence of pulmonary embolus. Bronchiectasis and infectious/inflammatory process noted, likely chronic such as from atypical mycobacterial infection. Findings are increased from 2011 and mild superimposed pneumonia cannot be excluded. ACT 112: Negative or not required by law. Electronically signed by: Chuy Gamboa M.D. 07/23/2023 1:47 PM Venous Doppler Study 07/23/23 14:01 US venous doppler LE CLINICAL HISTORY: r/o DVT TECHNIQUE: Bilateral lower extremity real-time compression venous ultrasound with Color Doppler imaging. Utilizing real-time ultrasonic imaging multiple real time high-resolution ultrasonic images with compression and noncompression maneuvers of the deep venous system in addition to color doppler imaging were performed from the common femoral vein through the proximal calf veins. COMPARISON: None available at the time of this dictation. FINDINGS/IMPRESSION: Currently there is normal compressibility of the deep venous system from the common femoral vein through the proximal calf veins. No superficial venous thrombosis is identified. ACT 112: Negative or not required by law. Electronically signed by: Chuy Gamboa M.D. 07/23/2023 4:56 PM Scrotum Ultrasound 07/24/23 08:47 SCROTAL ULTRASOUND CLINICAL HISTORY: scrotal edema COMPARISON STUDY: None. TECHNIQUE: Grayscale and color and duplex Doppler sonography of the scrotum was performed. FINDINGS: A large left hydrocele is noted. A right hydrocele may also be present. The right testis measures 5.9 x 2.9 x 3.5 cm and the left measures 5.1 x 1.4 x 2.7 cm. There is color flow within each testis. Dilated rete testes are incidentally noted. No evidence for epididymitis. IMPRESSION: 1. Large left hydrocele. Possible right hydrocele. 2. No testicular mass. No evidence for testicular torsion. ACT 112: Negative or not required by law. Electronically signed by: Silvestre Jones M.D. 07/24/2023 10:02 AM Hospital Course (1) Altered mental status: (2) Fever: (3) Elevated troponin: Plan Hospital problems addressed: Fever- resolved. labs and imaging reviewed. Procal 0.87, urine and blood clx negative. Reviewed ID notes- " tree-in-bud nodularities can represent myriad of etiologies which also include noninfectious and given that he has significant bronchiectasis would suggest he has underlying lung disease as he was a tobacco user. Would recommend follow-up with Pulmonary outpatient for monitoring, if his symptoms continue to progress and or repeat CT scan showing worsening of nodules would recommend a bronchoscopy at that point with cultures." - S/p empiric broad antibiotics Vanc/zosyn inhouse and being changed to levaquin at discharge to complete total of 7 days per ID. He tolerated first dose of levofloxacin here without issues. F/u with PCP with pulmonology referral. Elevated trop- mild, due to demand ischemia. seen by cardio. Continue metoprolol 12. 5 bid AMS- resolved He is comfortable and stable for discharge home. Noted to be ambulating independently prior to discharge. Total Time Total Time Spent Total Time Spent (In Minutes): 32 Discharge Plan Discharge Items Patient Disposition: Home - Self-Care Reason For Visit: FEVER, CONFUSION Discharge Diagnosis: Fever likely from pulmonary source Activity: Resume your previous activity Non-emergency contact: Primary Care Provider and Director Medicaid Call non-emergency contact if: you have any medication questions, your symptoms worsen and you have a fever Follow-up/Referrals: Jorge Gomes MD [Outside Practitioners] - (Date & Time 08/03/2023 8:20 AM Provider Rafael Patel MD Department Family Medicine [facility] ) Diet: Regular Addtl Attending Provider Instructions: Continue levofloxacin once daily from tomorrow morning for next 3 days Follow up with the lung doctors for monitoring and further management for your lung findings Pending Studies at Discharge: No Stand-Alone Forms: My [employer], Smoking Cessation Medications and DC Order Prescriptions: New levofloxacin 750 mg Tablet 750 mg PO DAILY 3 Days Qty: 3 0RF metoprolol tartrate 25 mg Tablet 12.5 mg PO BID Qty: 60 0RF No Action No Known Home Medications Discharge Orders: Discharge Order (Routine); Ordered 07/27/23 Ordered By: Hans Ortega Admission Data Admit Date/Time: 07/23/23 13:00 Attending Provider: Hans Ortega Admit Provider: Prasanth Alcocer Primary Care Provider: William Eisenberg Other Providers: Prasanth Alcocer; Art Sanchez; Mahendra Jessica; Marie Finney; Red Vance I.; Quique Solomon II; Tanisha Wiley; Pascual Best; Jarocho Strong; Julita Philippe; Geovany Galeana Other Interventions: Discharge Summary Assessment (RN) Last Done: 07/27/23 10:47
[2023-07-27 13:48] LABS: Babesia microti DNA Not Detected (Not Detected)
--- NOTE | 2023-07-28 14:55 | Coding Query ---
CODING QUERY To promote full compliance with coding requirements relating to patient care, provider participation is requested in all cases of blower mechanic uncertainty. Please assist us with the question(s) below: Coding Question(s): Documentation in the medical record indicates: DISCHARGE SUMMARY: *Poss sepsis/pna are not included in your discharge summary 07/24 IM PN: Possible sepsis, poss. pna - Admitted to PCU - Resp panel was negative - CXR negative - WBC wnl - Procal 0.87 Started broad spectrum antibiotics as clinical picture c/w infection of unclear source (Zosyn, vancomycin) ID NOTE: CT did identify tree-in-bud nodularities in pt without overt respiratory symptoms other than hypoxia. it is possible that he had community- acquired pneumonia without overt CT findings with an atypical organism or even viral in nature as is most likely. *Please review patients EMR for full and complete clinical data and physician documentation* Based on your medical judgment, can you please clarify/provide in the progress notes if sepsis/pna has been ruled in or ruled out? oX Poss sepsis/pna ruled in and resolved o Sepsis/pna ruled out o SIRS only with poss viral pna o Other ( ) Unable to Determine Physician's Response(s): Thank you Lenka Raines Principal Diagnosis: "that condition established after study, to be chiefly responsible for occasioning the admission of the patient to the hospital for care." Co-Existing Principal Diagnosis: "when two or more diagnoses equally meet the criteria for principal diagnosis as determined by the circumstances of admission, diagnostic work up, and/or therapy provided, and the Alphabetic Index, Tabular List, or another coding guideline does not provide sequencing direction, any one of the diagnoses may be sequenced first." "When the physician has documented what appears to be a current diagnosis in the body of the record, but has not included the diagnosis in the final diagnostic statement, the physician should be asked whether the diagnosis should be added." (Source Coding [facility] 2 QTR90. p3-4) [facility]
== END 2023-07-27 11:23 | disposition home or self-care (01) | DRG 871 ==
LOC: ED 09:48 → SUATTDRO 13:00 → 2E 13:00